=== PATIENT | male | born 1930 | race Caucasian/White ===

== ENCOUNTER 2017-04-14 12:29 | Inpatient (IN) | payer MEDICARE ==
[2017-04-14] MEDS ORDERED: IPRATROPIUM-ALBUTEROL 3 ML NEB INHALATION STA (13:20)
[2017-04-14 13:22] LABS: Glucose,Whole Blood 158 mg/dL (75-99)
--- NOTE | 2017-04-14 13:24 | ED ---
General Adult HPI - General Chief complaint: Altered Mental Status Stated complaint: Alterd Mental State Time Seen by Provider: 04/14/17 13:03 Source: family, EMS, RN notes reviewed Mode of arrival: EMS Limitations: altered mental status - History of Present Illness Initial comments: Patient is a pleasant 86-year-old male presenting to the emergency department with concerns for change in mental status. Daughters are present and provide history. Patient does have some dementia. Patient has been more drowsy since yesterday. has been sleeping all day today and unable to get out of bed. No reported fevers. Patient has had coughing recently and saw an urgent care yesterday and diagnosed with pneumonia. Patient was placed on antibiotics however is only taken 2 pills because he has been so drowsy. No isolated area of weakness. Patient denies any pain. Daughter states patient did complain of headache yesterday - Related Data Home Medications Medication Instructions Recorded Confirmed Apixaban [Eliquis] 2.5 mg PO BID 04/14/17 04/14/17 Aspirin EC [Ecotrin Low Dose] 81 mg PO DAILY 04/14/17 04/14/17 Calcium Carbonate/Vitamin D3 1 tab PO BID 04/14/17 04/14/17 [Calcium 600-Vit D3 200 Tablet] Carvedilol [Coreg] 6.25 mg PO BID 04/14/17 04/14/17 Donepezil [Aricept] 10 mg PO HS 04/14/17 04/14/17 Doxycycline Hyclate 100 mg PO BID 04/14/17 04/14/17 Insulin Glargine,Hum.rec.anlog 40 units SQ HS 04/14/17 04/14/17 [Crystal Amado] Insulin Lispro [humaLOG] See Protocol SQ ACHS 04/14/17 04/14/17 Losartan/Hydrochlorothiazide 1 tab PO DAILY 04/14/17 04/14/17 [Losartan-Hctz 100-12.5 mg Tab] Rosuvastatin Calcium [Crestor] 10 mg PO HS 04/14/17 04/14/17 Vit A/Vit C/Vit E/Zinc/Copper 1 cap PO BID 04/14/17 04/14/17 [ICAPS SOFTGEL] amLODIPine [Norvasc] 2.5 mg PO DAILY 04/14/17 04/14/17 Allergies Allergy/AdvReac Type Severity Reaction Status Date / Time No Known Allergies Allergy Verified 04/14/17 13:52 Review of Systems ROS Statement: Those systems with pertinent positive or pertinent negative responses have been documented in the HPI. ROS Other: All systems not noted in ROS Statement are negative. Constitutional: Denies: fever Eyes: Denies: eye pain ENT: Denies: ear pain Respiratory: Reports: cough (Resolved). Denies: dyspnea Cardiovascular: Denies: chest pain Endocrine: Reports: fatigue Gastrointestinal: Denies: abdominal pain, vomiting Genitourinary: Denies: dysuria Musculoskeletal: Denies: back pain Skin: Denies: rash Neurological: Reports: headache, weakness, confusion Past Medical History Past Medical History: Coronary Artery Disease (CAD), Cancer, Dementia, Diabetes Mellitus, Hyperlipidemia, Pulmonary Embolus (PE) Additional Past Medical History / Comment(s): prostate cancer, insulin dependent diabetes, History of Any Multi-Drug Resistant Organisms: None Reported Past Surgical History: Coronary Bypass/CABG Additional Past Surgical History / Comment(s): 5 vessel bypass 2007, Past Psychological History: No Psychological Hx Reported Smoking Status: Former smoker Past Alcohol Use History: None Reported Past Drug Use History: None Reported General Exam Limitations: altered mental status General appearance: alert, in no apparent distress Head exam: Present: atraumatic Eye exam: Present: normal appearance, PERRL ENT exam: Present: normal oropharynx Neck exam: Present: normal inspection. Absent: tenderness, meningismus Respiratory exam: Present: wheezes (Mild expiratory wheeze) Cardiovascular Exam: Present: regular rate, normal rhythm GI/Abdominal exam: Present: soft. Absent: tenderness Extremities exam: Present: tenderness (Right first MTP with mild swelling and mild erythema) Neurological exam: Present: alert, altered, CN II-XII intact. Absent: motor sensory deficit Expanded Patient oriented to: Present: person. Absent: place, time Speech: Present: fluid speech Cranial nerves: EOM's Intact: Normal Motor strength exam: RUE: 5, LUE: 5, RLE: 5, LLE: 5 Psychiatric exam: Present: normal affect, normal mood Skin exam: Present: erythema (Mild erythema right first MTP) Course Vital Signs 04/14/17 04/14/17 04/14/17 12:34 13:44 14:00 Temperature 97.8 F Pulse Rate 78 73 78 Respiratory 30 H 20 20 Rate Blood Pressure 175/80 176/84 172/80 O2 Sat by Pulse 92 L 96 92 L Oximetry 04/14/17 04/14/17 14:05 14:14 Temperature Pulse Rate 68 72 Respiratory Rate Blood Pressure O2 Sat by Pulse Oximetry EKG Findings - EKG Comments: EKG Findings:: Normal sinus rhythm 79. CT 136. QRS 126. QT 426. QTc 48. Normal axis. Right bundle branch block. Inferior Q waves. No acute ST change. Medical Decision Making - Medical Decision Making Patient reevaluated and resting comfortably in bed. Patient symptoms are felt to be more likely related to pneumonia. Patient does meet sepsis criteria diagnosed at 3:49 PM. Lactic acid and blood cultures have been ordered. IV antibiotics will be started. Case was discussed in detail with Dr. Gold, who will admit for hospital call. Neurology will be consult at for altered mental status. - Lab Data Result diagrams: 04/14/17 13:21 04/14/17 13:21 Lab Results 04/14/17 04/14/17 04/14/17 Range/Units 13:21 13:21 13:21 WBC 16.8 H (3.8-10.6) k/uL RBC 4.09 L (4.30-5.90) m/uL Hgb 10.8 L (13.0-17.5) gm/dL Hct 33.3 L (39.0-53.0) % MCV 81.6 (80.0-100.0) fL MCH 26.4 (25.0-35.0) pg MCHC 32.3 (31.0-37.0) g/dL RDW 17.4 H (11.5-15.5) % Plt Count 295 (150-450) k/uL Neutrophils % 83 % Lymphocytes % 8 % Monocytes % 7 % Eosinophils % 0 % Basophils % 0 % Neutrophils # 13.9 H (1.3-7.7) k/uL Lymphocytes # 1.4 (1.0-4.8) k/uL Monocytes # 1.1 H (0-1.0) k/uL Eosinophils # 0.0 (0-0.7) k/uL Basophils # 0.1 (0-0.2) k/uL Anisocytosis Slight PT (9.0-12.0) sec INR (<1.2) APTT (22.0-30.0) sec Sodium (137-145) mmol/L Potassium (3.5-5.1) mmol/L Chloride (98-107) mmol/L Carbon Dioxide (22-30) mmol/L Anion Gap mmol/L BUN (9-20) mg/dL Creatinine (0.66-1.25) mg/dL Est GFR (MDRD) Af Amer (>60 ml/min/1.73 sqM) Est GFR (MDRD) Non-Af (>60 ml/min/1.73 sqM) Glucose (74-99) mg/dL POC Glucose (mg/dL) (75-99) mg/dL POC Glu Outside Sales Inspector ID Plasma Lactic Acid Markel 1.3 (0.7-2.0) mmol/L Uric Acid (3.5-8.5) mg/dL Calcium (8.4-10.2) mg/dL Total Bilirubin (0.2-1.3) mg/dL AST (17-59) U/L ALT (21-72) U/L Alkaline Phosphatase (38-126) U/L Ammonia <9 (<30) umol/L Total Creatine Kinase 177 H (55-170) U/L CK-MB (CK-2) 2.2 (0.0-2.4) ng/mL CK-MB (CK-2) Rel Index 1.2 Troponin I 0.038 H* (0.000-0.034) ng/mL NT-Pro-B Natriuret Pep pg/mL Total Protein (6.3-8.2) g/dL Albumin (3.5-5.0) g/dL 04/14/17 04/14/17 04/14/17 Range/Units 13:21 13:21 13:21 WBC (3.8-10.6) k/uL RBC (4.30-5.90) m/uL Hgb (13.0-17.5) gm/dL Hct (39.0-53.0) % MCV (80.0-100.0) fL MCH (25.0-35.0) pg MCHC (31.0-37.0) g/dL RDW (11.5-15.5) % Plt Count (150-450) k/uL Neutrophils % % Lymphocytes % % Monocytes % % Eosinophils % % Basophils % % Neutrophils # (1.3-7.7) k/uL Lymphocytes # (1.0-4.8) k/uL Monocytes # (0-1.0) k/uL Eosinophils # (0-0.7) k/uL Basophils # (0-0.2) k/uL Anisocytosis PT 11.4 (9.0-12.0) sec INR 1.1 (<1.2) APTT 23.7 (22.0-30.0) sec Sodium 141 (137-145) mmol/L Potassium 4.1 (3.5-5.1) mmol/L Chloride 101 (98-107) mmol/L Carbon Dioxide 28 (22-30) mmol/L Anion Gap 12 mmol/L BUN 34 H (9-20) mg/dL Creatinine 1.64 H (0.66-1.25) mg/dL Est GFR (MDRD) Af Amer 48 (>60 ml/min/1.73 sqM) Est GFR (MDRD) Non-Af 40 (>60 ml/min/1.73 sqM) Glucose 148 H (74-99) mg/dL POC Glucose (mg/dL) 158 H (75-99) mg/dL POC Glu Outside Sales Inspector ID McDaid, Sarah Plasma Lactic Acid Markel (0.7-2.0) mmol/L Uric Acid (3.5-8.5) mg/dL Calcium 9.5 (8.4-10.2) mg/dL Total Bilirubin 0.6 (0.2-1.3) mg/dL AST 45 (17-59) U/L ALT 71 (21-72) U/L Alkaline Phosphatase 97 (38-126) U/L Ammonia (<30) umol/L Total Creatine Kinase (55-170) U/L CK-MB (CK-2) (0.0-2.4) ng/mL CK-MB (CK-2) Rel Index Troponin I (0.000-0.034) ng/mL NT-Pro-B Natriuret Pep pg/mL Total Protein 6.8 (6.3-8.2) g/dL Albumin 3.5 (3.5-5.0) g/dL 04/14/17 04/14/17 Range/Units 13:21 13:21 WBC (3.8-10.6) k/uL RBC (4.30-5.90) m/uL Hgb (13.0-17.5) gm/dL Hct (39.0-53.0) % MCV (80.0-100.0) fL MCH (25.0-35.0) pg MCHC (31.0-37.0) g/dL RDW (11.5-15.5) % Plt Count (150-450) k/uL Neutrophils % % Lymphocytes % % Monocytes % % Eosinophils % % Basophils % % Neutrophils # (1.3-7.7) k/uL Lymphocytes # (1.0-4.8) k/uL Monocytes # (0-1.0) k/uL Eosinophils # (0-0.7) k/uL Basophils # (0-0.2) k/uL Anisocytosis PT (9.0-12.0) sec INR (<1.2) APTT (22.0-30.0) sec Sodium (137-145) mmol/L Potassium (3.5-5.1) mmol/L Chloride (98-107) mmol/L Carbon Dioxide (22-30) mmol/L Anion Gap mmol/L BUN (9-20) mg/dL Creatinine (0.66-1.25) mg/dL Est GFR (MDRD) Af Amer (>60 ml/min/1.73 sqM) Est GFR (MDRD) Non-Af (>60 ml/min/1.73 sqM) Glucose (74-99) mg/dL POC Glucose (mg/dL) (75-99) mg/dL POC Glu Outside Sales Inspector ID Plasma Lactic Acid Markel (0.7-2.0) mmol/L Uric Acid 7.2 (3.5-8.5) mg/dL Calcium (8.4-10.2) mg/dL Total Bilirubin (0.2-1.3) mg/dL AST (17-59) U/L ALT (21-72) U/L Alkaline Phosphatase (38-126) U/L Ammonia (<30) umol/L Total Creatine Kinase (55-170) U/L CK-MB (CK-2) (0.0-2.4) ng/mL CK-MB (CK-2) Rel Index Troponin I (0.000-0.034) ng/mL NT-Pro-B Natriuret Pep 1780 pg/mL Total Protein (6.3-8.2) g/dL Albumin (3.5-5.0) g/dL - Radiology Data Radiology results: report reviewed (Computed tomography scan of the brain shows no acute abdomen Chase. Severe atrophy and chronic small vessel ischemic change. Old right parietal occipital infarct.), image reviewed (X-ray right foot shows first MTP joint arthropathy two-view chest x-ray shows basilar infiltrate.) Critical Care Time Critical Care Time: Yes Total Critical Care Time: 31 Disposition Clinical Impression: Altered mental status, Pneumonia, Sepsis Disposition: ADMITTED IP TO THIS HOSP Condition: Serious Referrals: Dharmesh Christy DO [Primary Care Provider] - 1-2 days Decision Time: 15:54
[2017-04-14 13:38] LABS: Anisocytosis Slight; Basophils # (A) 0.1 k/uL (0-0.2); Basophils % (A) 0 %; CH 26.5; CHCM 32.6; Eosinophils % (A) 0 %; HCT 33.3 % (39.0-53.0); HDW 2.97; HGB 10.8 gm/dL (13.0-17.5); Luc % (Auto) 2; Lymphocytes # (A) 1.4 k/uL (1.0-4.8); Lymphocytes % (A) 8 %; MCH 26.4 pg (25.0-35.0); MCHC 32.3 g/dL (31.0-37.0); MCV 81.6 fL (80.0-100.0); Mean Platelet Volume 8.5; Monocytes # (A) 1.1 k/uL (0-1.0); Monocytes % (A) 7 %; Neutrophils # (A) 13.9 k/uL (1.3-7.7); Neutrophils % (A) 83 %; RBC 4.09 m/uL (4.30-5.90); RDW 17.4 % (11.5-15.5); WBC 16.8 k/uL (3.8-10.6); WBC (Perox) 15.61
[2017-04-14 13:47] LABS: Calcium 9.5 mg/dL (8.4-10.2); Potassium 4.1 mmol/L (3.5-5.1); Total Bilirubin 0.6 mg/dL (0.2-1.3); Total Protein 6.8 g/dL (6.3-8.2)
[2017-04-14 13:51] LABS: INR 1.1 (<1.2); Partial Thromboplastin Time 23.7 sec (22.0-30.0); Prothrombin Time 11.4 sec (9.0-12.0)
[2017-04-14 13:56] LABS: Ammonia <9 umol/L (<30)
--- NOTE | 2017-04-14 14:05 | XR ---
EXAMINATION TYPE: XR chest 2V DATE OF EXAM: 04/14/2017 COMPARISON: NONE TECHNIQUE: PA and lateral views submitted. HISTORY: Altered mental status FINDINGS: Heart is enlarged and is atherosclerotic change aorta. Postoperative change involving the mediastinum . Basilar consolidation and small effusions. IMPRESSION: 1. Basilar infiltrate and small effusion could not exclude mild central venous congestion.
--- NOTE | 2017-04-14 14:05 | CT ---
EXAMINATION TYPE: CT brain wo con DATE OF EXAM: 04/14/2017 HISTORY: Altered mental status. Lethargy with headache and neck pain. History of Alzheimer's. CT DLP: 1072.3 mGycm. Automated Exposure Control for Dose Reduction was Utilized. TECHNIQUE: CT scan of the head is performed without contrast. COMPARISON: None. FINDINGS: There is no acute intracranial hemorrhage or midline shift identified. There is diffuse v entricular and sulcal prominence consistent with diffuse age-related cerebral atrophy. There is low- attenuation in the periventricular white matter consistent with chronic small vessel ischemic change. There is old infarct high right parietal occipital region there are axial image 37. There is partial opacification and mucosal thickening involving ethmoid sinuses bilaterally. Cortical lorenzo in both globes are identified. IMPRESSION: No acute intracranial hemorrhage or midline shift. There is fairly severe diffuse age-r elated cerebral atrophy and chronic small vessel ischemic change as well as old high right parietal o ccipital lobe posterior watershed infarct all identified.
--- NOTE | 2017-04-14 14:06 | XR ---
EXAMINATION TYPE: XR foot complete RT DATE OF EXAM: 04/14/2017 COMPARISON: NONE HISTORY: Pain TECHNIQUE: Three views are submitted. FINDINGS: The osseous structures are intact and is narrowing and hypertrophic change of the first MTP joint. T here is no acute fracture or dislocation. Surgical clips are seen adjacent to the medial margin of t he ankle. Calcaneal spurs are noted. IMPRESSION: 1. No acute fracture or dislocation. If symptoms persist, follow-up exam in 7 to 10 days could be ob tained. 2. Severe first MTP joint arthropathy.
[2017-04-14 14:08] LABS: Creatine Kinase MB 2.2 ng/mL (0.0-2.4)
[2017-04-14 14:17] LABS: Troponin I 0.038 ng/mL (0.000-0.034)
[2017-04-14] MEDS ORDERED: PNEUMONIA PROTOCOL UTILIZED 1 EACH MISC PO PRN (15:54)
[2017-04-14] MEDS ORDERED: IPRATROPIUM-ALBUTEROL 3 ML NEB INHALATION PRN (15:54)
[2017-04-14] MEDS ORDERED: AZITHROMYCIN 500 MG in SODIUM CHLORIDE 0.9% 250 ML IVPB STA (15:54)
[2017-04-14] MEDS ORDERED: amLODIPine 5 MG TAB PO STA (16:07)
[2017-04-14] MEDS: SODIUM CHLORIDE 0.9% 1,000 ML IV SCH (16:39)
[2017-04-14] MEDS: IPRATROPIUM-ALBUTEROL 3 ML NEB INHALATION SCH ×2 (16:56→20:05)
[2017-04-14 17:33] LABS: Glucose,Whole Blood 149 mg/dL (75-99)
[2017-04-14] MEDS: ASPIRIN 81 MG PO SCH (18:26)
[2017-04-14 20:33] LABS: Glucose,Whole Blood 205 mg/dL (75-99)
[2017-04-14] MEDS: APIXABAN 5 MG TAB PO SCH (20:38)
[2017-04-14] MEDS: DONEPEZIL 10 MG TAB PO SCH (20:38)
[2017-04-14] MEDS: VIT A,C & E-LUTEIN-MINERALS 1 EACH TAB PO SCH (20:38)
[2017-04-14] MEDS: CALCIUM CARB-VIT D 500MG-200UN 1 EACH TAB PO SCH (20:38)
[2017-04-14] MEDS: ATORVASTATIN 20 MG TAB PO SCH (20:38)
[2017-04-14] MEDS: INSULIN GLARGINE 100 UNIT/ML 10 ML VIAL SQ SCH (20:38)
[2017-04-14] MEDS: INSULIN LISPRO (humaLOG) 300 UNIT/3 ML VIAL SQ SCH (20:39)
[2017-04-14] MEDS: NYSTATIN 100,000UNIT/GM CREAM 30 GM TUBE TOPICAL SCH (20:40)
[2017-04-14 22:05] LABS: Appearance,Urine Clear (Clear); Bilirubin,Urine Negative (Negative); Glucose,Urine (UA) Negative (Negative); Ketones,Urine Negative (Negative); Leukocyte Esterase,Urine Negative (Negative); Mucus,Urine Rare /hpf; Nitrite,Urine Negative (Negative); PH, Urine 5.5 (5.0-8.0); Particle Count 2510; Protein,Urine 1+ (Negative); RBC,Urine 10 /hpf (0-5); Specific Gravity,Urine 1.018 (1.001-1.035); UA Billing (MACRO vs. MICRO) MICRO; Urobilinogen,Urine <2.0 mg/dL (<2.0); WBC,Urine <1 /hpf (0-5)
[2017-04-14 22:26] LABS: Hemoglobin A1C 7.6 % (4.2-6.1)
[2017-04-15 02:02] LABS: Glucose,Whole Blood 106 mg/dL (75-99)
[2017-04-15] MEDS: SODIUM CHLORIDE 0.9% 1,000 ML IV SCH ×2 (04:30→11:47)
[2017-04-15 05:49] LABS: Glucose,Whole Blood 82 mg/dL (75-99)
[2017-04-15] MEDS: INSULIN LISPRO (humaLOG) 300 UNIT/3 ML VIAL SQ SCH ×4 (05:59→21:54)
[2017-04-15] MEDS: CARVEDILOL 6.25 MG TAB PO SCH ×2 (06:12→16:36)
[2017-04-15] MEDS: IPRATROPIUM-ALBUTEROL 3 ML NEB INHALATION SCH ×4 (08:14→20:47)
[2017-04-15] MEDS ORDERED: LOSARTAN 50 MG TAB PO SCH (09:00)
[2017-04-15] MEDS ORDERED: HYDROCHLOROTHIAZIDE 12.5 MG CAP PO SCH (09:00)
--- NOTE | 2017-04-15 09:10 | XR ---
EXAMINATION TYPE: XR chest 2V DATE OF EXAM: 04/15/2017 COMPARISON: X-ray from yesterday. HISTORY: Pneumonia progress study. TECHNIQUE: Frontal and lateral views of the chest are obtained. FINDINGS: Post-CABG changes with mediastinal clips and sternal wires is redemonstrated. Cardiac silh ouette size is upper limits of normal currently and improving. There is improving central vascular co ngestion and bibasilar opacities on current study. No new focal airspace opacity or pneumothorax is s een bilaterally. There is suspected stable small left pleural effusion. Degenerative change right gle nohumeral joint is redemonstrated. IMPRESSION: Stable persistent small left pleural effusion. Improving central vascular congestion and cardiomegaly with improving bibasilar infiltrate and/or atelectasis.
--- NOTE | 2017-04-15 09:23 | HP ---
HISTORY AND PHYSICAL CHIEF COMPLAINT: 86-year-old, white male, admitted through the emergency room with a change in mental status. HISTORY OF PRESENT ILLNESS: 86-year-old, white male, presented with altered mental status. More drowsy, sleeping all day. Coughing. He was seen in the Urgent Care, diagnosed with pneumonia, became obtunded last 24 to 48 hours at which time, was admitted to the hospital. 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 MEDICATIONS: He is on Eliquis at home for atrial fibrillation. DVTs. Aspirin 81 daily, calcium carbonate daily, Coreg 6.25 b.i.d., Aricept 10 daily, doxycycline 100 b.i.d. for recent pneumonia, insulin 40 units q.h.s., Humalog a.c. and q.h.s., Hyzaar 100/12.5 1 daily. Crestor 10 mg daily. Norvasc 2.5 daily. ALLERGIES: No known drug allergies. REVIEW OF SYSTEMS: Very limited response of the patient as he has recently sleeping. Discussed with the family multiple cares. PHYSICAL EXAMINATION: Temp 97.8, pulse 73 to 78, respiratory rate 20s to 30s. Blood pressure 170s over 80s, O2 92-96% on room air. CARDIOVASCULAR: S1, S2. Lungs wheeze x4 and Endocrine: BMI is over 40. Psych: Fair mood and affect. Speech he is limited speech but cannot recently saying. He falls back asleep. GI: Distended without mass or obesity. CARDIOVASCULAR: Regular rate and rhythm. HEENT: Normocephalic, atraumatic. Pupils equal, round, reactive to light and accommodation. EKG sinus rhythm. White count 16.8, hemoglobin was 10.8, BUN is 34, creatinine 1.6. ASSESSMENT: 1. Pneumonia. 2. Sepsis secondary to pneumonia. IV antibiotics have been given as well as Rocephin and Zithromax. Neurology consult for possible CVA is ordered. He is also complaining of neck pain. Waking up. We will order a CT of the cervical spine. EKG shows inferior ST changes. Continue in the next current 24 to 48 hours. MMODL / IJN: [id number] /
[2017-04-15] MEDS: ASPIRIN 81 MG PO SCH (09:35)
[2017-04-15] MEDS: amLODIPine 2.5 MG TAB PO SCH (09:35)
[2017-04-15] MEDS: APIXABAN 5 MG TAB PO SCH (09:35)
[2017-04-15] MEDS: NYSTATIN 100,000UNIT/GM CREAM 30 GM TUBE TOPICAL SCH ×3 (09:36→22:22)
[2017-04-15] MEDS: VIT A,C & E-LUTEIN-MINERALS 1 EACH TAB PO SCH ×2 (09:36→21:54)
[2017-04-15] MEDS: CALCIUM CARB-VIT D 500MG-200UN 1 EACH TAB PO SCH ×2 (09:36→21:54)
[2017-04-15 11:46] LABS: Glucose,Whole Blood 111 mg/dL (75-99)
[2017-04-15] MEDS: AZITHROMYCIN 500 MG TAB PO SCH (15:50)
[2017-04-15 18:00] LABS: Glucose,Whole Blood 115 mg/dL (75-99)
--- NOTE | 2017-04-15 18:36 | P.PN ---
Subjective This is a 86-year-old gentleman that is seen in cross coverage for Dr. Dr. Norm Gold. Patient was evaluated by Dr. Gold on 04/14/2017 patient was felt to have change in mental status due to a pneumonic process. Most of the history is obtained from chart review. Patient apparently has a history of CAD remote history of pulmonary embolism is currently on anticoagulation. Patient has a history of dementia. Was noted to have an elevated white count and bibasilar airspace disease was started on antibiotic therapy for CAD Today patient is arousable however confused this appears to be close to his baseline moves all 4 extremities Patient did have an elevated troponin level on admission and an elevated BNP chest x-ray did show pulmonary vessel congestion unknown if patient has congestive heart failure Patient's medications do not reflect there is systolic failure as patient is on calcium channel melissa Objective - Vital Signs Vital signs: Vital Signs Temp 97.6 F 04/15/17 08:45 Pulse 74 04/15/17 17:48 Resp 16 04/15/17 16:04 BP 148/57 04/15/17 16:03 Pulse Ox 93 L 04/15/17 17:33 Intake & Output 04/14/17 04/15/17 04/15/17 18:59 06:59 18:59 Intake Total 100 700 Output Total 186 Balance -86 700 Weight 99.79 kg 100 kg Intake: Intake, IV Titration 700 Amount Sodium Chloride 0.9% 1, 700 000 ml @ 100 mls/hr IV . Q10H BALWINDER Rx#:[id number] Oral 100 Output: Post Void Residual 186 Other: Voiding Method Urinal Urinal Urinal Diaper Diaper Diaper # Voids 3 0 # Bowel Movements 1 - Exam Alert to self Neck is supple no JVD Breath sounds are equal no wheezing crackles or rhonchi appreciated does have a cough evaluation wheezing noted predominantly from the upper airways air movement is noted in all lung buenrostro Heart S1-S2 heard appears to be irregular no murmurs appreciated Abdomen is soft nontender no organomegaly Lower extremities no edema noted Neuro moves all 4 extremities cranial nerves to till 12 grossly intact follows simple commands however is unaware of his location. - Labs CBC & Chem 7: 04/14/17 13:21 04/14/17 13:21 Labs: Abnormal Lab Results - Last 24 Hours (Table) 04/14/17 04/14/17 04/14/17 Range/Units 13:21 20:32 21:30 POC Glucose (mg/dL) 205 H (75-99) mg/dL Hemoglobin A1c 7.6 H (4.2-6.1) % Urine Protein 1+ H (Negative) Urine Blood Trace H (Negative) Urine RBC 10 H (0-5) /hpf Urine Mucus Rare H (None) /hpf 04/15/17 04/15/17 04/15/17 Range/Units 02:00 11:45 17:58 POC Glucose (mg/dL) 106 H 111 H 115 H (75-99) mg/dL Hemoglobin A1c (4.2-6.1) % Urine Protein (Negative) Urine Blood (Negative) Urine RBC (0-5) /hpf Urine Mucus (None) /hpf Microbiology - Last 24 Hours (Table) 04/14/17 13:21 Blood Culture - Preliminary Blood No Growth after 24 hours Assessment and Plan Plan: #1 sepsis secondary to a community-acquired pneumonia #2 hypertension, accelerated with no urgency features #3 underlying dementia #4 CAD #5 history of pulmonary embolism #6 dyslipidemia #7 previous history of CVA #8 indeterminate troponin leak #9 acute metabolic encephalopathy likely secondary to #1 and mild hypoxia intermittently Plan We'll obtain echocardiogram to evaluate LV function patient did have a troponin leak with patient's poor history unsure if patient has chest pain and this was the inciting event Blood pressures will be monitored will need better control Telemetry monitoring to continue
[2017-04-15] MEDS ORDERED: FUROSEMIDE 10 MG/ML 4 ML VIAL IV STA (19:56)
--- NOTE | 2017-04-15 20:39 | XR ---
EXAMINATION TYPE: XR chest 1V portable DATE OF EXAM: 04/15/2017 CLINICAL HISTORY: Difficulty breathing and pneumonia progress study. TECHNIQUE: Single AP portable upright view of the chest is obtained. COMPARISON: Chest x-ray from earlier today. FINDINGS: Post-CABG changes with mediastinal clips and sternal wires is redemonstrated. Cardiac silh ouette size is stable and upper limits of normal with atherosclerotic thoracic aorta. There is persis tent [id number] central vascular congestion. No suspicious new focal airspace opacity or pneumo thorax is seen bilaterally. There is suspected stable small left pleural effusion. Degenerative cramer e right glenohumeral joint is redemonstrated. Surgical clips right neck level are noted. IMPRESSION: Overall stable findings, central vascular congestion and small left pleural effusion wi thout distinct suspicious focal infiltrate clearly seen
[2017-04-15 21:13] LABS: Glucose,Whole Blood 221 mg/dL (75-99)
[2017-04-15] MEDS: AMPICILLIN-SULBACTAM 1.5 GM in SODIUM CHLORIDE 0.9% 50 ML IVPB SCH (21:54)
[2017-04-15] MEDS: ATORVASTATIN 20 MG TAB PO SCH (21:54)
[2017-04-15] MEDS: DONEPEZIL 10 MG TAB PO SCH (21:54)
[2017-04-15] MEDS: INSULIN GLARGINE 100 UNIT/ML 10 ML VIAL SQ SCH (21:59)
[2017-04-15] MEDS: APIXABAN 2.5 MG TABLET PO SCH (22:22)
--- NOTE | 2017-04-16 00:06 | P.CNNES ---
History of Present Illness Consult date: 04/14/17 Reason for Consult: altered mental status Chief complaint: Confusion History of Present Illness: The patient is an 86-year-old male being consulted by neurology for altered mental status. Patient was evaluated by Dr. Park on 04/14/2017 and felt to have changes in mental status due to pneumonia process. Patient does have a history of CAD, remote pulmonary embolism and a history of dementia. Patients daughter stated he has Alzheimers. Per family, the patient has been declining significantly in the last several months in memory and global functioning. [place] prior to December 2016 but his health was declining. He was moved to the [facility] in December 2016 but failed to establish with any primary care or, unable to follow specialty providers. Per daughter, the patient has been without his medications for the last severla months. This is the first contact of any medical care since relocating. On contact, the patient was supine in bed, visibly confused, unable to follow direction. Review of Systems Systems not noted in HPI are negative Past Medical History Past Medical History: Coronary Artery Disease (CAD), Cancer, CVA/TIA, Dementia, Diabetes Mellitus, Eye Disorder, Hyperlipidemia, Hypertension, Memory Impairment , Pneumonia, Prostate Disorder, Pulmonary Embolus (PE) Additional Past Medical History / Comment(s): prostate cancer,skin cancer, insulin dependent diabetes,katia macular degeneration, past detatched retina katia eyes had sx, past cataracs(sx), shingles 40 years ago, wears a brief. "yeast infection abd fold/groin area-has a prescription cream for it" History of Any Multi-Drug Resistant Organisms: None Reported Past Surgical History: Coronary Bypass/CABG, Hernia Repair, Prostate Surgery Additional Past Surgical History / Comment(s): 5 vessel bypass 2007, katia carotid sx, prostatectomy, katia eye retinal sx, bleheroplasty x2, catatacts Past Anesthesia/Blood Transfusion Reactions: Previous Problems w/ Anesthesia Additional Past Anesthesia/Blood Transfusion Reaction / Comment(s): increased confusion/hallucinating after sx Smoking Status: Former smoker - Past Family History Mother Family Medical History: CVA/TIA, Dementia Father Family Medical History: Cancer Additional Family Medical History / Comment(s): from stomach cancer at 48 Medications and Allergies Home Medications Medication Instructions Recorded Confirmed Type Apixaban [Eliquis] 2.5 mg PO BID 04/14/17 04/14/17 History Aspirin EC [Ecotrin Low Dose] 81 mg PO DAILY 04/14/17 04/14/17 History Calcium Carbonate/Vitamin D3 1 tab PO BID 04/14/17 04/14/17 History [Calcium 600-Vit D3 200 Tablet] Carvedilol [Coreg] 6.25 mg PO BID 04/14/17 04/14/17 History Donepezil [Aricept] 10 mg PO HS 04/14/17 04/14/17 History Doxycycline Hyclate 100 mg PO BID 04/14/17 04/14/17 History Insulin Glargine,Hum.rec.anlog 40 units SQ HS 04/14/17 04/14/17 History [Toudaniel Solostar] Insulin Lispro [humaLOG] See Protocol SQ ACHS 04/14/17 04/14/17 History Losartan/Hydrochlorothiazide 1 tab PO DAILY 04/14/17 04/14/17 History [Losartan-Hctz 100-12.5 mg Tab] Nystatin 100,000Unit/gm Cream 1 applic TOPICAL TID 04/14/17 04/14/17 History [Mycostatin Cream] Rosuvastatin Calcium [Crestor] 10 mg PO HS 04/14/17 04/14/17 History Vit A/Vit C/Vit E/Zinc/Copper 1 cap PO BID 04/14/17 04/14/17 History [ICAPS SOFTGEL] amLODIPine [Norvasc] 2.5 mg PO DAILY 04/14/17 04/14/17 History Allergies Allergy/AdvReac Type Severity Reaction Status Date / Time No Known Allergies Allergy Verified 04/14/17 13:52 Physical Examination - Vital Signs Vital Signs: Vital Signs Temp Pulse Pulse Pulse Resp BP Pulse Ox 04/15/17 21:01 80 04/15/17 20:47 78 04/15/17 20:00 78 30 H 150/72 98 04/15/17 17:48 74 04/15/17 17:33 70 93 L 04/15/17 16:04 16 04/15/17 16:03 72 16 148/57 92 L 04/15/17 11:55 76 04/15/17 11:39 76 04/15/17 11:25 65 18 142/69 94 L 04/15/17 08:45 97.6 F 65 20 147/68 94 L 04/15/17 07:35 78 40 H 153/107 79 L 04/15/17 04:00 98.2 F 73 20 149/71 92 L 04/15/17 00:00 97.1 F L 77 20 157/77 95 Intake and Output 04/15/17 04/15/17 04/16/17 14:59 22:59 06:59 Other: Voiding Method Urinal Urinal Diaper Diaper # Voids 2 0 # Bowel Movements 1 Constitutional: AOx1, intermittently cooperative HEENT: NC/AT, no facial asymmetry is seen. Throat: Supple, no masses Respiratory: No increased work of breathing Cardiac: Regular rate and Rhythm GI: non tender, non distended Musculoskeletal: Steamer Tender strengths are equal bilaterally 5/5, Lower extremity strengths are equal bilaterally at 5/5. Neurological: CN II-XII in tact, patient was AOx1, moves all extremities, intermittently follows simple verbal commands Integementary: no rash, no erythema Results - Laboratory Findings CBC and BMP: 04/14/17 13:21 04/14/17 13:21 Abnormal Lab Findings: Abnormal Labs 04/14/17 04/14/17 04/14/17 13:21 13:21 13:21 WBC 16.8 H RBC 4.09 L Hgb 10.8 L Hct 33.3 L RDW 17.4 H Neutrophils # 13.9 H Monocytes # 1.1 H D-Dimer BUN 34 H Creatinine 1.64 H Glucose 148 H POC Glucose (mg/dL) Hemoglobin A1c Total Creatine Kinase 177 H Troponin I 0.038 H* Urine Protein Urine Blood Urine RBC Urine Mucus 04/14/17 04/14/17 04/14/17 13:21 13:21 17:20 WBC RBC Hgb Hct RDW Neutrophils # Monocytes # D-Dimer BUN Creatinine Glucose POC Glucose (mg/dL) 158 H 149 H Hemoglobin A1c 7.6 H Total Creatine Kinase Troponin I Urine Protein Urine Blood Urine RBC Urine Mucus 04/14/17 04/14/17 04/15/17 20:32 21:30 02:00 WBC RBC Hgb Hct RDW Neutrophils # Monocytes # D-Dimer BUN Creatinine Glucose POC Glucose (mg/dL) 205 H 106 H Hemoglobin A1c Total Creatine Kinase Troponin I Urine Protein 1+ H Urine Blood Trace H Urine RBC 10 H Urine Mucus Rare H 04/15/17 04/15/17 04/15/17 11:45 17:58 20:05 WBC RBC Hgb Hct RDW Neutrophils # Monocytes # D-Dimer 1.56 H BUN Creatinine Glucose POC Glucose (mg/dL) 111 H 115 H Hemoglobin A1c Total Creatine Kinase Troponin I Urine Protein Urine Blood Urine RBC Urine Mucus 04/15/17 21:01 WBC RBC Hgb Hct RDW Neutrophils # Monocytes # D-Dimer BUN Creatinine Glucose POC Glucose (mg/dL) 221 H Hemoglobin A1c Total Creatine Kinase Troponin I Urine Protein Urine Blood Urine RBC Urine Mucus - Diagnostic Findings Additional findings: CT brain without contrast notes: No acute intracranial hemorrhage or midline shift. Fairly severe diffuse age-related cerebral atrophy and chronic small vessel ischemic changes as well as old high right parietal occipital lobe posterior watershed infarct all identified. Assessment and Plan (1) Alzheimer's dementia Status: Acute (2) Altered mental status Status: Acute (3) Sepsis Status: Acute (4) Metabolic encephalopathy Status: Acute Plan: Metabolic Encepahlopathy secondary to CAP: Patient is not on required medication, except for intermittent use of remaining from prior to relocating in December 2016. Patient is currently receiving IV anitibiotics for pneumonia per primary team. Patient's pneumonia likely exacerbated his alzheimers disease as he has not had consistent Alzheimers medication in the last 4 months. However, there is some inconsistency since imaging notes small vessel ischemic disease but family insists he has ALzheimer' s. Status: Patient is cleared from a neurological standpoint at this time, until his underlying infectious processes is cleared. Patient will need to follow up within 2 weeks post discharge for establishment of long-term medication regimen and determination of alzheimers vs vascular dementia. We will request prior provider records to determine definitive diagnosis and prior medication regimen. I discussed the patient's pertinent medical information with Dr. Gonzalez. He agrees with the plan of care as implemented.
[2017-04-16 06:12] LABS: Glucose,Whole Blood 85 mg/dL (75-99)
[2017-04-16 06:35] LABS: Anisocytosis Slight; Basophils % (A) 0 %; CH 25.2; CHCM 30.5; Eosinophils # (A) 0.1 k/uL (0-0.7); Eosinophils % (A) 1 %; HCT 33.8 % (39.0-53.0); HDW 2.87; HGB 10.9 gm/dL (13.0-17.5); Hypochromasia Moderate; Luc # (Auto) 0.36; Luc % (Auto) 3; Lymphocytes # (A) 1.6 k/uL (1.0-4.8); Lymphocytes % (A) 12 %; MCH 26.8 pg (25.0-35.0); MCHC 32.3 g/dL (31.0-37.0); MCV 82.8 fL (80.0-100.0); Mean Platelet Volume 7.5; Monocytes # (A) 0.7 k/uL (0-1.0); Monocytes % (A) 5 %; Neutrophils # (A) 10.8 k/uL (1.3-7.7); Neutrophils % (A) 80 %; RBC 4.09 m/uL (4.30-5.90); RDW 16.4 % (11.5-15.5); WBC 13.6 k/uL (3.8-10.6)
[2017-04-16] MEDS: INSULIN LISPRO (humaLOG) 300 UNIT/3 ML VIAL SQ SCH ×4 (06:37→21:02)
[2017-04-16 06:41] LABS: Potassium 3.5 mmol/L (3.5-5.1); Total Bilirubin 0.4 mg/dL (0.2-1.3); Total Protein 6.4 g/dL (6.3-8.2)
[2017-04-16] MEDS: IPRATROPIUM-ALBUTEROL 3 ML NEB INHALATION SCH ×4 (08:36→20:27)
[2017-04-16] MEDS: AMPICILLIN-SULBACTAM 1.5 GM in SODIUM CHLORIDE 0.9% 50 ML IVPB SCH ×2 (09:15→21:04)
[2017-04-16] MEDS ORDERED: FUROSEMIDE 40 MG TAB PO SCH (11:00)
[2017-04-16 12:14] LABS: Glucose,Whole Blood 77 mg/dL (75-99)
[2017-04-16] MEDS: APIXABAN 2.5 MG TABLET PO SCH ×2 (12:18→21:02)
[2017-04-16] MEDS: NYSTATIN 100,000UNIT/GM CREAM 30 GM TUBE TOPICAL SCH ×3 (12:18→21:03)
[2017-04-16] MEDS: ASPIRIN 81 MG PO SCH (12:18)
[2017-04-16] MEDS: CARVEDILOL 6.25 MG TAB PO SCH ×2 (12:18→16:41)
[2017-04-16] MEDS: CALCIUM CARB-VIT D 500MG-200UN 1 EACH TAB PO SCH ×2 (12:18→21:02)
[2017-04-16] MEDS: amLODIPine 2.5 MG TAB PO SCH (12:18)
[2017-04-16] MEDS: VIT A,C & E-LUTEIN-MINERALS 1 EACH TAB PO SCH ×2 (12:18→21:02)
[2017-04-16] MEDS ORDERED: DEXTROSE 4 GM CHEWABLE PO PRN (12:21)
[2017-04-16] MEDS: POTASSIUM CHLORIDE 20 MEQ, LIDOCAINE 2% INJ 20 MG in SODIUM CHLORIDE 0.9% 100 ML IVPB SCH ×2 (12:25→14:38)
[2017-04-16] MEDS: AZITHROMYCIN 500 MG TAB PO SCH (14:38)
--- NOTE | 2017-04-16 16:27 | P.PN ---
Subjective This is a 86-year-old gentleman that is seen in cross coverage for Dr. Dr. Norm Gold. Patient was evaluated by Dr. Gold on 04/14/2017 patient was felt to have change in mental status due to a pneumonic process. Most of the history is obtained from chart review. Patient apparently has a history of CAD remote history of pulmonary embolism is currently on anticoagulation. Patient has a history of dementia. Was noted to have an elevated white count and bibasilar airspace disease was started on antibiotic therapy for CAD Today patient is arousable however confused this appears to be close to his baseline moves all 4 extremities Patient did have an elevated troponin level on admission and an elevated BNP chest x-ray did show pulmonary vessel congestion unknown if patient has congestive heart failure Patient's medications do not reflect there is systolic failure as patient is on calcium channel melissa 04/16/2017 Patient was doing well yesterday however overnight the patient did receive a phone call stating the sudden onset of difficulty breathing was noted thereafter patient was slightly lethargic. Patient required significant amount of supplemental oxygen This was after the patient's meal Patient apparently does have dementia at baseline. Patient's family member who was at bedside did give a more extensive history. Patient is arousable this morning denies having any breathing difficulty nausea vomiting abdominal pain or diarrhea is on the 4 L of supplemental oxygen at this time. Objective - Vital Signs Vital signs: Vital Signs Temp 99.4 F 04/16/17 08:49 Pulse 90 04/16/17 16:21 Resp 16 04/16/17 11:35 BP 149/75 04/16/17 11:35 Pulse Ox 95 04/16/17 11:35 Intake & Output 04/15/17 04/16/17 04/16/17 18:59 06:59 18:59 Intake Total 200 Output Total 2200 Balance -2200 200 Weight 101 kg Intake: IV 200 Potassium Chloride 20 meq 200 Lidocaine 2% Inj 20 mg In Sodium Chloride 0.9% 100 ml @ 55.5 mls/hr IVPB Q2HR BALWINDER Rx#:[id number] Output: Urine 2200 Other: Voiding Method Urinal Indwelling Catheter Indwelling Catheter Diaper # Voids 0 # Bowel Movements 1 - Exam Gen. appearance alert to self however is answering questions appropriately lungs good air movement is noted no significant wheezing rhonchi a trace crackles at the by bases similar areas Heart S1-S2 heard regular in rhythm no murmurs or patient Abdomen is soft nontender organomegaly Lower ext. no edema noted Neuro is able to move all fortunately is does follow commands however is not completely appropriate. - Labs CBC & Chem 7: 04/16/17 05:40 04/16/17 05:40 Labs: Abnormal Lab Results - Last 24 Hours (Table) 04/15/17 04/15/17 04/15/17 Range/Units 17:58 20:05 21:01 WBC (3.8-10.6) k/uL RBC (4.30-5.90) m/uL Hgb (13.0-17.5) gm/dL Hct (39.0-53.0) % RDW (11.5-15.5) % Neutrophils # (1.3-7.7) k/uL D-Dimer 1.56 H (<0.60) mg/L FEU BUN (9-20) mg/dL Creatinine (0.66-1.25) mg/dL Glucose (74-99) mg/dL POC Glucose (mg/dL) 115 H 221 H (75-99) mg/dL AST (17-59) U/L ALT (21-72) U/L Albumin (3.5-5.0) g/dL 04/16/17 04/16/17 Range/Units 05:40 05:40 WBC 13.6 H (3.8-10.6) k/uL RBC 4.09 L (4.30-5.90) m/uL Hgb 10.9 L (13.0-17.5) gm/dL Hct 33.8 L (39.0-53.0) % RDW 16.4 H (11.5-15.5) % Neutrophils # 10.8 H (1.3-7.7) k/uL D-Dimer (<0.60) mg/L FEU BUN 32 H (9-20) mg/dL Creatinine 1.69 H (0.66-1.25) mg/dL Glucose 68 L (74-99) mg/dL POC Glucose (mg/dL) (75-99) mg/dL AST 79 H (17-59) U/L ALT 80 H (21-72) U/L Albumin 3.1 L (3.5-5.0) g/dL Microbiology - Last 24 Hours (Table) 04/14/17 13:21 Blood Culture - Preliminary Blood No Growth after 48 hours Assessment and Plan Plan: #1 sepsis secondary to a community-acquired pneumonia #2 hypertension, accelerated with no urgency features #3 underlying dementia #4 CAD #5 history of pulmonary embolism #6 dyslipidemia #7 previous history of CVA #8 indeterminate troponin leak #9 acute metabolic encephalopathy likely secondary to #1 and mild hypoxia intermittently Plan Renal function appears to be stable. Aspiration precautions Patient will need a speech therapy evaluation If patient's to be fed will need 1-1 monitoring This could be highly suspicious in a patient with dementia were the deglutation reflex is affected with any acute illness.
[2017-04-16] MEDS: FUROSEMIDE 40 MG TAB PO SCH (16:41)
[2017-04-16 17:17] LABS: Glucose,Whole Blood 81 mg/dL (75-99)
[2017-04-16 20:44] LABS: Glucose,Whole Blood 100 mg/dL (75-99)
[2017-04-16] MEDS: ATORVASTATIN 20 MG TAB PO SCH (21:02)
[2017-04-16] MEDS: INSULIN GLARGINE 100 UNIT/ML 10 ML VIAL SQ SCH (21:02)
[2017-04-16] MEDS: DONEPEZIL 10 MG TAB PO SCH (21:02)
--- NOTE | 2017-04-16 21:26 | CONS ---
CONSULTATION Mr. Archuleta, an 86 -year-old male patient came to the Hospital with mental status changes. He was brought upstairs because of an episode of shortness of breath. He cannot give me much of a history. According to the nurse, he was short of breath and he had an abnormal single abnormal troponin drawn 2 days back. He is barely arousable at this time. He looks comfortable. He did get 1 dose of Lasix. PAST MEDICAL PROBLEMS: Include atrial fibrillation. He is on Eliquis for this. Coronary artery disease. History of dementia, diabetes, pulmonary embolism, prostate cancer, insulin dependent diabetes. REVIEW OF SYSTEMS: Not available. ALLERGIES: No known drug allergies. MEDICATIONS: 1. Include amlodipine. 2. Vitamins. 3. Crestor. 4. Losartan. 5. Hydrochlorothiazide. 6. Insulin. 7. Carvedilol. 8. Aspirin. 9. Eliquis. EXAMINATION: His blood pressure is 149/79 mmHg, 120/65. 126/72 mmHg. Pulse rate in the 70s. HEART: Sounds S1, S2 are soft. Breath sounds are reduced bilaterally with poor respiratory effort. ABDOMEN: Soft. IMPRESSION: An episode of shortness of breath in this elderly gentleman who has dementia with one single borderline troponin that was abnormal 2 days prior. Suggest Lasix 40 mg p.o. daily. Continue Eliquis, continue baby aspirin and statins. If his blood pressure is consistently above 140/90 mmHg, the dose of amlodipine may be increased to 5 mg p.o. daily. There is no consideration for any invasive cardiac workup in this gentleman, medical treatment and addressing code status is recommended. MMODL / IJN: [id number] /
[2017-04-17 02:48] LABS: Glucose,Whole Blood 108 mg/dL (75-99)
[2017-04-17 05:52] LABS: Anisocytosis Slight; Basophils % (A) 0 %; CH 26.2; CHCM 31.9; Eosinophils # (A) 0.1 k/uL (0-0.7); Eosinophils % (A) 1 %; HCT 35.9 % (39.0-53.0); HDW 2.98; HGB 11.2 gm/dL (13.0-17.5); Hypochromasia Slight; Luc # (Auto) 0.28; Luc % (Auto) 2; Lymphocytes # (A) 1.3 k/uL (1.0-4.8); Lymphocytes % (A) 9 %; MCH 25.8 pg (25.0-35.0); MCHC 31.1 g/dL (31.0-37.0); MCV 82.8 fL (80.0-100.0); Monocytes # (A) 0.8 k/uL (0-1.0); Monocytes % (A) 6 %; Neutrophils # (A) 11.5 k/uL (1.3-7.7); Neutrophils % (A) 82 %; RBC 4.34 m/uL (4.30-5.90); RDW 17.2 % (11.5-15.5); WBC (Perox) 14.08
[2017-04-17 06:01] LABS: Calcium 9.2 mg/dL (8.4-10.2); Potassium 4.1 mmol/L (3.5-5.1); Total Bilirubin 0.6 mg/dL (0.2-1.3); Total Protein 6.8 g/dL (6.3-8.2)
[2017-04-17 06:13] LABS: Glucose,Whole Blood 122 mg/dL (75-99)
[2017-04-17] MEDS: INSULIN LISPRO (humaLOG) 300 UNIT/3 ML VIAL SQ SCH ×4 (06:42→20:22)
[2017-04-17] MEDS: CARVEDILOL 6.25 MG TAB PO SCH ×2 (06:42→18:06)
[2017-04-17] MEDS: IPRATROPIUM-ALBUTEROL 3 ML NEB INHALATION SCH ×4 (08:05→20:24)
[2017-04-17] MEDS: VIT A,C & E-LUTEIN-MINERALS 1 EACH TAB PO SCH ×2 (09:04→20:21)
[2017-04-17] MEDS: amLODIPine 2.5 MG TAB PO SCH (09:04)
[2017-04-17] MEDS: FUROSEMIDE 40 MG TAB PO SCH (09:04)
[2017-04-17] MEDS: APIXABAN 2.5 MG TABLET PO SCH ×2 (09:04→20:12)
[2017-04-17] MEDS: CALCIUM CARB-VIT D 500MG-200UN 1 EACH TAB PO SCH ×2 (09:04→20:26)
[2017-04-17] MEDS: ASPIRIN 81 MG PO SCH (09:04)
[2017-04-17] MEDS: AMPICILLIN-SULBACTAM 1.5 GM in SODIUM CHLORIDE 0.9% 50 ML IVPB SCH ×2 (09:09→20:11)
[2017-04-17] MEDS: NYSTATIN 100,000UNIT/GM CREAM 30 GM TUBE TOPICAL SCH ×3 (09:10→20:21)
[2017-04-17 11:50] LABS: Glucose,Whole Blood 143 mg/dL (75-99)
[2017-04-17] MEDS: traMADol 50 MG TAB PO PRN (15:45)
[2017-04-17] MEDS: AZITHROMYCIN 500 MG TAB PO SCH (15:45)
[2017-04-17 17:32] LABS: Glucose,Whole Blood 152 mg/dL (75-99)
--- NOTE | 2017-04-17 18:49 | CT ---
EXAMINATION TYPE: CT chest wo con DATE OF EXAM: 04/17/2017 COMPARISON: NONE HISTORY: Patient poor historian. Pneumonia. CT DLP: 561.6 mGycm. Automated Exposure Control for Dose Reduction was Utilized. TECHNIQUE: CT scan of the thorax is performed without IV contrast. FINDINGS: LUNGS: There is airspace opacity in the left lower lobe with air bronchograms consistent with pneumon ia. There is a small left-sided pleural effusion. There is also dependent atelectasis noted at the [facility] lung base with a few foci of air bronchograms which could be due to pneumonia on the right also. There is no pneumothorax. There is no emphysema. MEDIASTINUM: Lack of IV contrast is noted to limit evaluation for mediastinal and especially hilar ad enopathy. There are no definitive greater than 1 cm hilar or mediastinal lymph nodes. No cardiomega ly or pericardial effusion is seen. There is significant coronary arterial calcifications. The right kidney is diminutive and atrophic. OTHER: No additional significant abnormality is seen. IMPRESSION: Pneumonia is noted in the left lower lobe is also small focus in the right lower lobe. Th ere is a small left-sided pleural effusion.
[2017-04-17] MEDS: ATORVASTATIN 20 MG TAB PO SCH (20:12)
[2017-04-17] MEDS: DONEPEZIL 10 MG TAB PO SCH (20:12)
[2017-04-17 20:21] LABS: Glucose,Whole Blood 268 mg/dL (75-99)
[2017-04-17] MEDS: INSULIN GLARGINE 100 UNIT/ML 10 ML VIAL SQ SCH (20:23)
--- NOTE | 2017-04-17 23:13 | PN ---
PROGRESS NOTE CHIEF COMPLAINT: 86-year-old, white male, admitted with pneumonia and altered mental status. Hypoxemia. He has a history of dementia. His sensorium is clearing up since I have seen a couple days ago. He is talking more, answered questions appropriate although his eyes are mostly shot, he does open his eyes though. He asked if he is still in the hospital but he is asking appropriate questions at this time compared to before where he was more somnolent before. Vital signs at this time include: Blood pressure 143/71, O2 92% on 2 L. Temp 98.3, pulse 77 to 80, respiratory 18 to 22. Cardiovascular S1, S2. Lungs scattered rhonchi and wheeze. Hematological: Negative Homans. Psych: Fair mood and affect. Neurologic: Alert and orient times one, sometimes two. Not sure where he is it. ASSESSMENT: 1. Pneumonia. 2. Acute respiratory distress. 3. History of chronic obstructive pulmonary disease. 4. History of possible he has elevated troponin and cardiology recently cleared him from a cardiac standpoint. They gave him one dose of Lasix. 5. His white count is improving with IV antibiotics. 6. His bilateral airspace disease is improving on chest x-ray. I am going to do a CT scan just to make sure of the lungs without contrast. 7. He has acute and chronic renal insufficiency. 8. History of dementia. 9. History of atherosclerotic heart disease. Continue current treatment with IV antibiotics empirically. Check CT scan. Check labs. Please see further orders in the chart. MMODL / IJN: [id number] /
[2017-04-18 05:43] LABS: Glucose,Whole Blood 85 mg/dL (75-99)
[2017-04-18 06:02] LABS: Anisocytosis Slight; Basophils # (A) 0.1 k/uL (0-0.2); Basophils % (A) 0 %; CH 26.2; CHCM 31.7; Eosinophils # (A) 0.1 k/uL (0-0.7); Eosinophils % (A) 0 %; HCT 33.6 % (39.0-53.0); HDW 2.98; HGB 10.4 gm/dL (13.0-17.5); Hypochromasia Slight; Luc # (Auto) 0.26; Luc % (Auto) 2; Lymphocytes # (A) 1.3 k/uL (1.0-4.8); Lymphocytes % (A) 9 %; MCH 25.7 pg (25.0-35.0); MCHC 30.9 g/dL (31.0-37.0); MCV 83.1 fL (80.0-100.0); Mean Platelet Volume 8.3; Monocytes # (A) 0.8 k/uL (0-1.0); Monocytes % (A) 5 %; Neutrophils # (A) 12.1 k/uL (1.3-7.7); Neutrophils % (A) 84 %; RBC 4.04 m/uL (4.30-5.90); RDW 17.2 % (11.5-15.5); WBC 14.5 k/uL (3.8-10.6); WBC (Perox) 15.65
[2017-04-18 06:25] LABS: Calcium 9.1 mg/dL (8.4-10.2); Potassium 3.9 mmol/L (3.5-5.1); Total Bilirubin 0.5 mg/dL (0.2-1.3); Total Protein 6.3 g/dL (6.3-8.2)
[2017-04-18] MEDS: INSULIN LISPRO (humaLOG) 300 UNIT/3 ML VIAL SQ SCH ×4 (07:37→22:45)
[2017-04-18] MEDS: AMPICILLIN-SULBACTAM 1.5 GM in SODIUM CHLORIDE 0.9% 50 ML IVPB SCH ×2 (07:53→22:44)
[2017-04-18] MEDS: CARVEDILOL 6.25 MG TAB PO SCH ×2 (08:03→17:24)
[2017-04-18] MEDS: NYSTATIN 100,000UNIT/GM CREAM 30 GM TUBE TOPICAL SCH ×2 (08:03→18:21)
[2017-04-18] MEDS: APIXABAN 2.5 MG TABLET PO SCH ×2 (08:03→20:27)
[2017-04-18] MEDS: CALCIUM CARB-VIT D 500MG-200UN 1 EACH TAB PO SCH ×2 (08:03→20:28)
[2017-04-18] MEDS: VIT A,C & E-LUTEIN-MINERALS 1 EACH TAB PO SCH ×2 (08:03→20:28)
[2017-04-18] MEDS: FUROSEMIDE 40 MG TAB PO SCH (08:03)
[2017-04-18] MEDS: amLODIPine 2.5 MG TAB PO SCH (08:03)
[2017-04-18] MEDS: ASPIRIN 81 MG PO SCH (08:04)
[2017-04-18] MEDS: IPRATROPIUM-ALBUTEROL 3 ML NEB INHALATION SCH ×4 (08:08→19:42)
--- NOTE | 2017-04-18 10:18 | ECHOF ---
Referral Reason:lv function MEASUREMENTS -------- HEIGHT: 170.2 cm WEIGHT: 100.7 kg BP: 149/75 RVIDd: 2.8 cm (< 3.3) IVSd: 1.3 cm (0.6 - 1.1) LVIDd: 4.4 cm (3.9 - 5.3) LVPWd: 1.3 cm (0.6 - 1.1) IVSs: 1.5 cm LVIDs: 3.4 cm LVPWs: 1.4 cm LA Diam: 2.6 cm (2.7 - 3.8) LAESV Index (A-L): 19.63 ml/m Ao Diam: 3.5 cm (2.0 - 3.7) AV Cusp: 2.0 cm (1.5 - 2.6) MV EXCURSION: 15.618 mm (> 18.000) MV EF SLOPE: 60 mm/s (70 - 150) EPSS: 0.5 cm MV E Genaro: 0.86 m/s MV DecT: 214 ms MV A Genaro: 1.08 m/s MV E/A Ratio: 0.80 RAP: 5.00 mmHg RVSP: 37.58 mmHg FINDINGS -------- Sinus rhythm. This was a technically adequate study. The left ventricular size is normal. There is moderate concentric left ventricular hypertrophy. Overall left ventricular systolic function is mildly impaired with, an EF between 45 - 50 %. Basal inferior LV wall motion is hypokinetic. Basal inferoseptal LV wall motion is hypokinetic. The right ventricle is normal in size. Normal LA size by volume 22+/-6 ml/m2. The right atrium is normal in size. Aortic valve is trileaflet and is mildly thickened. Mild mitral annular calcification present. There is trace mitral regurgitation. Mild tricuspid regurgitation present. There is mild pulmonary hypertension. The right ventricular systolic pressure, as measured by Doppler, is 37.58mmHg. Trace/mild (physiologic) pulmonic regurgitation. The aortic root size is normal. Normal inferior vena cava with normal inspiratory collapse consistent with estimated right atrial pressure of 5 mmHg. There is a small, generalized pericardial effusion present. CONCLUSIONS -------- 1. Sinus rhythm. 2. The right atrium is normal in size. 3. Aortic valve is trileaflet and is mildly thickened. 4. Mild mitral annular calcification present. 5. There is trace mitral regurgitation. 6. Mild tricuspid regurgitation present. 7. There is mild pulmonary hypertension. 8. The right ventricular systolic pressure, as measured by Doppler, is 37.58mmHg. 9. Trace/mild (physiologic) pulmonic regurgitation. 10. The aortic root size is normal. 11. Normal inferior vena cava with normal inspiratory collapse consistent with estimated right atrial pressure of 5 mmHg. 12. This was a technically adequate study. 13. There is a small, generalized pericardial effusion present. 14. The left ventricular size is normal. 15. There is moderate concentric left ventricular hypertrophy. 16. Overall left ventricular systolic function is mildly impaired with, an EF between 45 - 50 %. 17. Basal inferior LV wall motion is hypokinetic. 18. Basal inferoseptal LV wall motion is hypokinetic. 19. The right ventricle is normal in size. 20. Normal LA size by volume 22+/-6 ml/m2. UPHOLSTERY BUNDLER: Eva David RDCS
--- NOTE | 2017-04-18 11:02 | PN ---
PROGRESS NOTE DATE OF SERVICE: 04/18/2017. SUBJECTIVE: An 86-year-old white male admitted for pneumonia. Empiric antibiotics were given with vanc and Zosyn. Chest CT last night showed pneumonia in the left lower lobe and a small focus in the right lower lobe, and a small left-sided pleural effusion. He has bilateral pneumonia at this time. He will remain on antibiotics with vancomycin and Zosyn as well as DuoNeb updrafts. He is on Zithromax through IV as well as Zosyn for pneumonia. She is on Eliquis for atrial fibrillation, Norvasc low dose 2.5 mg to control blood pressure along with Coreg. He is on Aricept for dementia. There is an increase obtundation in the past 2 to 4 days since he has been here, which is improving on a daily basis secondary to metabolic encephalopathy secondary to pneumonia. His sugars have been decent with his Lantus and Accu-Chek protocol. He is on nystatin topical for candidiasis under the groin area. He remains on Rocephin 1 gram a day, Zithromax 500 mg a day, Zosyn 1.5 mg every 12 hours. LABORATORY DATA: Show white count is down to 14.5, hemoglobin 10.4, sodium 146, BUN is 41, creatinine 1.65. Sugars are in the mid 100s to 200s, down to 85 this morning. Liver enzymes are going to 105, 100 and 152. Albumin is low at 3. ASSESSMENT: 1. Bilateral pneumonia. Suspect gram-negative pneumonia. 2. Stage 3B renal insufficiency. 3. Diabetes mellitus. 4. Moderate protein calorie malnutrition. 5. Elevated liver enzymes, probably due to fatty liver. 6. Leukocytosis secondary to pneumonia. 7. Acute hypoxemic respiratory failure secondary to pneumonia and chronic obstructive pulmonary disease. 8. Acute on chronic anemia. PLAN: Continue current treatment. Followup in the next 24 to 48 hours. Maintained on triple antibiotic therapy. The patient is slowly improving. May need rehab center due to poor strength. MMODL / IJN: [id number] /
[2017-04-18 12:01] LABS: Glucose,Whole Blood 162 mg/dL (75-99)
[2017-04-18] MEDS: AZITHROMYCIN 500 MG TAB PO SCH (15:32)
[2017-04-18 16:34] LABS: Glucose,Whole Blood 172 mg/dL (75-99)
[2017-04-18] MEDS: ATORVASTATIN 20 MG TAB PO SCH (20:27)
[2017-04-18] MEDS: DONEPEZIL 10 MG TAB PO SCH (20:28)
[2017-04-18 21:13] LABS: Glucose,Whole Blood 148 mg/dL (75-99)
[2017-04-18] MEDS: INSULIN GLARGINE 100 UNIT/ML 10 ML VIAL SQ SCH (22:44)
[2017-04-19 06:04] LABS: Glucose,Whole Blood 79 mg/dL (75-99)
[2017-04-19 06:31] LABS: Calcium 9.1 mg/dL (8.4-10.2); Potassium 3.5 mmol/L (3.5-5.1); Total Bilirubin 0.3 mg/dL (0.2-1.3); Total Protein 6.2 g/dL (6.3-8.2)
[2017-04-19] MEDS: CARVEDILOL 6.25 MG TAB PO SCH ×2 (07:25→16:15)
[2017-04-19 07:26] LABS: Anisocytosis Slight; Basophils % (A) 0 %; CH 25.1; CHCM 30.5; Eosinophils # (A) 0.2 k/uL (0-0.7); Eosinophils % (A) 2 %; HCT 32.5 % (39.0-53.0); HDW 2.86; HGB 10.2 gm/dL (13.0-17.5); Hypochromasia Marked; Luc # (Auto) 0.23; Luc % (Auto) 2; Lymphocytes # (A) 1.8 k/uL (1.0-4.8); Lymphocytes % (A) 17 %; MCH 25.9 pg (25.0-35.0); MCHC 31.3 g/dL (31.0-37.0); MCV 82.8 fL (80.0-100.0); Mean Platelet Volume 8.3; Monocytes # (A) 0.5 k/uL (0-1.0); Monocytes % (A) 5 %; Neutrophils # (A) 7.6 k/uL (1.3-7.7); Neutrophils % (A) 73 %; RBC 3.92 m/uL (4.30-5.90); RDW 16.4 % (11.5-15.5); WBC 10.4 k/uL (3.8-10.6); WBC (Perox) 10.81
[2017-04-19] MEDS: NYSTATIN 100,000UNIT/GM CREAM 30 GM TUBE TOPICAL SCH ×3 (07:35→16:15)
[2017-04-19] MEDS: INSULIN LISPRO (humaLOG) 300 UNIT/3 ML VIAL SQ SCH ×4 (07:54→22:26)
[2017-04-19] MEDS: IPRATROPIUM-ALBUTEROL 3 ML NEB INHALATION SCH ×4 (08:26→20:04)
[2017-04-19 08:28] LABS: Manual Review Performed
[2017-04-19] MEDS: FUROSEMIDE 40 MG TAB PO SCH (09:11)
[2017-04-19] MEDS: VIT A,C & E-LUTEIN-MINERALS 1 EACH TAB PO SCH ×2 (09:11→22:25)
[2017-04-19] MEDS: APIXABAN 2.5 MG TABLET PO SCH ×2 (09:11→22:25)
[2017-04-19] MEDS: amLODIPine 2.5 MG TAB PO SCH (09:11)
[2017-04-19] MEDS: ASPIRIN 81 MG PO SCH (09:11)
[2017-04-19] MEDS: CALCIUM CARB-VIT D 500MG-200UN 1 EACH TAB PO SCH ×2 (09:11→22:26)
[2017-04-19] MEDS: AMPICILLIN-SULBACTAM 1.5 GM in SODIUM CHLORIDE 0.9% 50 ML IVPB SCH ×2 (09:48→22:25)
[2017-04-19 11:50] LABS: Glucose,Whole Blood 172 mg/dL (75-99)
[2017-04-19] MEDS: AZITHROMYCIN 500 MG TAB PO SCH (16:15)
[2017-04-19 16:37] LABS: Glucose,Whole Blood 131 mg/dL (75-99)
[2017-04-19] MEDS: BUDESONIDE 0.5 MG/2 ML NEBU INHALATION SCH (20:04)
[2017-04-19 21:21] LABS: Glucose,Whole Blood 195 mg/dL (75-99)
[2017-04-19] MEDS: ATORVASTATIN 20 MG TAB PO SCH (22:25)
[2017-04-19] MEDS: DONEPEZIL 10 MG TAB PO SCH (22:25)
[2017-04-19] MEDS: INSULIN GLARGINE 100 UNIT/ML 10 ML VIAL SQ SCH (22:26)
[2017-04-19] MEDS: traMADol 50 MG TAB PO PRN (22:49)
[2017-04-20 05:52] LABS: Glucose,Whole Blood 78 mg/dL (75-99)
[2017-04-20] MEDS: CARVEDILOL 6.25 MG TAB PO SCH (07:07)
[2017-04-20] MEDS: NYSTATIN 100,000UNIT/GM CREAM 30 GM TUBE TOPICAL SCH (07:09)
[2017-04-20] MEDS: IPRATROPIUM-ALBUTEROL 3 ML NEB INHALATION SCH ×3 (08:12→15:51)
[2017-04-20] MEDS: BUDESONIDE 0.5 MG/2 ML NEBU INHALATION SCH (08:12)
[2017-04-20] MEDS: INSULIN LISPRO (humaLOG) 300 UNIT/3 ML VIAL SQ SCH ×2 (09:25→12:17)
[2017-04-20] MEDS: APIXABAN 2.5 MG TABLET PO SCH (09:44)
[2017-04-20] MEDS: VIT A,C & E-LUTEIN-MINERALS 1 EACH TAB PO SCH (09:45)
[2017-04-20] MEDS: CALCIUM CARB-VIT D 500MG-200UN 1 EACH TAB PO SCH (09:45)
[2017-04-20] MEDS: ASPIRIN 81 MG PO SCH (09:45)
[2017-04-20] MEDS: FUROSEMIDE 40 MG TAB PO SCH (09:45)
--- NOTE | 2017-04-20 10:02 | PN ---
PROGRESS NOTE DATE OF SERVICE: 04/19/2017 HISTORY OF PRESENT ILLNESS: Patient is an 86-year-old male who initially had been taken to the clinic and was told that he had pneumonia, was ordered medication, was only able to get two doses in due to problems with altered mental status changes and extreme tiredness. Subsequently, he was brought into the emergency room, was seen, was admitted with acute mental status changes and pneumonia and was started on antibiotic therapy. He does have a significant history of Alzheimer's disease, where he had not been having treatment for about 4 months. He also has a significant history of diabetes mellitus, coronary artery disease and a history of prostate cancer. Patient is seen. He is able to answer some questions for me with lots of provoking him. He is sitting up in chair. He is dozing off and on. He appears a little bit hard of hearing. He has denied any problems with nausea, vomiting, or diarrhea or constipation. He states that he is eating okay. He denies any pain at this time. States his breathing is okay. I do have to frequently repeat myself. There is no family present at examination time. PATIENT'S ALLERGIES: None known. PATIENT'S HOME MEDICATIONS INCLUDE: Nystatin cream t.i.d., Norvasc 2.5 mg daily, multivitamin cap twice a day, Crestor 10 mg at bedtime, Losartan with hydrochlorothiazide 100/12.5 mg daily, insulin lispro a.c. and at bedtime, Toujeo 40 units subcutaneous at bedtime, doxycycline hyclate 100 mg twice a day, Aricept 10 mg at bedtime, Coreg 6.25 mg twice a day, calcium with vitamin D twice a day, aspirin 81 mg daily and Eliquis 2.5 mg twice a day. FAMILY HISTORY: Significant for both parents being . Mother has history of CVA with dementia and father from stomach cancer, though patient thought maybe he also had lung cancer. SOCIAL HISTORY: Patient is , has 4 children. He states they are all alive and well. He states he is still smoking since a teenager, that he will smoke 1 pack per week. He states that he has a shot or two daily. He used to do office work. He wears glasses and dentures. PAST SURGICAL HISTORY: Includes coronary artery bypass graft x5, skin cancer, bilateral cataracts, hernia repair, prostate cancer surgery, blepharoplasty x2 and eye repair for detached retina. PAST MEDICAL HISTORY: Significant for shingles, bilateral macular degeneration, CAD, prostate cancer, dementia, diabetes mellitus, hyperlipidemia, pulmonary embolism, atrial fibrillation. CVA/TIA, hypertension, pneumonia. REVIEW OF SYSTEMS: Completed with the patient to the best of his capability with some questionable confusion. Head-to-toe assessment was done and is essentially negative other than what is noted in his HPI. PHYSICAL EXAMINATION: His vital signs show temperature 98, heart rate 70, respiratory rate 18, blood pressure 125/71, oxygen saturation 98% on 2 L. LABS: WBCs are 10.4, hemoglobin 10.2, hematocrit 32.5, platelets are 325. Sodium is 142, potassium is 3.5, chloride 101, carbon dioxide 30, BUN 36, creatinine is 1.66, glucose 76, calcium 9.1, total bilirubin 0.3, AST 132, ALT 127, alkaline phosphatase 137, total protein 6.2, albumin is 2.9. Blood cultures with no growth. CT of the chest with pneumonia to the left lower lobe with small focus in the right lower lobe and small left-sided pleural effusion. GENERAL: Patient is an 86-year-old male who appears comfortable, sitting up in chair. HEENT: Head is atraumatic, normocephalic. Pupils are equal, reactive. He does have problems with his lower eyelids folding over and reddish in color. Mucous membrane is moist. Neck is short, supple, thick. No JVD. Lungs sounds were diminished. No rales or wheezes heard at this time. CARDIOVASCULAR: S1, S2 is heard, irregular. Abdomen is soft. Bowel sounds are present. No obvious masses or organomegaly are palpated. No rebound or rigidity. He does have dejon to the groin area. EXTREMITIES: Mild edema. NEUROLOGIC: He is awake, alert. He still is somewhat confused. IMPRESSION: 1. Bilateral pneumonia, possible aspiration. 2. Sepsis. 3. Acute mental status changes. 4. Diabetes mellitus, insulin dependent. 5. Atrial fibrillation with a history of pulmonary embolism. 6. Hypertension. 7. Elevated liver enzymes. 8. Suspect chronic obstructive pulmonary disease exacerbation. 9. Acute on chronic renal insufficiency. PLAN: Patient needs to continue with medications as ordered. Continue his nebulizer treatments q.i.d. Continue with antibiotics as ordered and may require a swallow eval due to his lethargy. Continue with GI and DVT prophylaxis. Case was discussed with Dr. Kenney. He did have a echo done that showed EF of 45% to 50% and RVSP of 37.58 mmHg, suggestive of mild pulmonary hypertension. Thank you for the consultation. Will continue to follow patient closely with you and make further changes as necessary. HARJIT / CECELIAN: [id number] /
[2017-04-20] MEDS: AMPICILLIN-SULBACTAM 1.5 GM in SODIUM CHLORIDE 0.9% 50 ML IVPB SCH (10:15)
[2017-04-20 10:55] VITALS: BMI 33.8
[2017-04-20 12:04] LABS: Glucose,Whole Blood 232 mg/dL (75-99)
[2017-04-20 12:08] VITALS: BP 135/65; PULSE 64; RESP 18; TEMP 97.7
[2017-04-20] MEDS: amLODIPine 2.5 MG TAB PO SCH (12:17)
--- NOTE | 2017-04-20 14:14 | DS ---
DISCHARGE SUMMARY DISCHARGE MEDICATIONS: 1. Norvasc 2.5 mg daily. 2. Eliquis 2.5 b.i.d. 3. Lipitor 20 daily. 4. Pulmicort 0.5 mg b.i.d. 5. Coreg 6.25 b.i.d. 6. Augmentin 875 one b.i.d. for 7 days. 7. Azithromycin 500 mg daily for 7 days. 8. Aricept 10 mg daily. 9. Lasix 20 mg daily. 10.Lasix 40 mg daily. 11.Lantus 40 units subcutaneous daily. 12.Updrafts q.i.d. 13.Tramadol 50 q.6 p.r.n. CONDITION: Stable. PROGNOSIS: Guarded. Ambulate as tolerated. Follow up with Dr. Gold in the [facility]. HOSPITAL COURSE OF EVENTS: This is a white male, 86 years old, came in with bilateral pneumonia with altered sensorium, metabolic encephalopathy. Patient was seen by Cardiology who cleared from a cardiac standpoint. A diabetes history with protocol. His white count was 16.8 down to 10.4 at discharge. His BUN is 36 and creatinine 1.66 on discharge for acute on chronic renal insufficiency. Has elevated liver enzymes which will be needed to follow up as an outpatient for possible gallbladder issue. Patient is stabilized from a medical standpoint for pneumonia. His altered sensorium improved. He is still lightheaded, dizzy. Would need to go to a [facility] for placement for week or two under Dr. Norm Gold's care for pneumonia treatment. MMODL / IJN: [id number] /
--- NOTE | 2017-04-20 15:08 | PN ---
PROGRESS NOTE DATE OF SERVICE: 04/20/2017 He is in no respiratory distress. He seems to be doing better, overall. He denies any chest pain. He is pleasantly confused. PHYSICAL EXAMINATION: Blood pressure is 114/59, respiratory rate of 20, pulse rate of 63, temperature 97.4, O2 sat on 2 L by nasal cannula is 100% HEENT is unremarkable. Chest reveals scattered crackles in the bases. Cardiovascular system reveals an S1, S2. Abdomen is soft. There is no edema. IMPRESSION: 1. Alzheimer's-type dementia. 2. Aspiration-type pneumonia. Switch him to oral antibiotics. Narrow his antibiotic coverage. Agree with possible discharge planning on him at this time. MMODL / IJN: [id number] /
[2017-04-20] MEDS ORDERED: AMOXIC-POT CLAV 500-125 MG 1 EACH TAB PO SCH (21:00)
== END 2017-04-20 19:02 | DRG 871 ==
LOC: EC 12:29 → 6SEL 15:54 → 5MS5E 04-15 16:01 → 6SEL 04-15 20:06
PROVIDERS: ADMIT Family Medicine; ATTEND Family Medicine
DX: A41.9 Sepsis, unspecified organism (principal); G93.41 Metabolic encephalopathy; J69.0 Pneumonitis due to inhalation of food and vomit; J96.01 Acute respiratory failure with hypoxia; J90 Pleural effusion, not elsewhere classified; E44.0 Moderate protein-calorie malnutrition; G30.9 Alzheimer's disease, unspecified; E11.22 Type 2 diabetes mellitus with diabetic chronic kidney disease; I48.91 Unspecified atrial fibrillation; J44.9 Chronic obstructive pulmonary disease, unspecified; I12.9 Hypertensive chronic kidney disease with stage 1 through stage 4 chronic kidney disease, or unspecified chronic kidney disease; B37.9 Candidiasis, unspecified; F02.80 Dementia in other diseases classified elsewhere, unspecified severity, without behavioral disturbance, psychotic disturbance, mood disturbance, and anxiety; E78.5 Hyperlipidemia, unspecified; D64.9 Anemia, unspecified; H35.30 Unspecified macular degeneration; H91.90 Unspecified hearing loss, unspecified ear; I25.10 Atherosclerotic heart disease of native coronary artery without angina pectoris; K76.0 Fatty (change of) liver, not elsewhere classified; N18.9 Chronic kidney disease, unspecified; Z79.01 Long term (current) use of anticoagulants; Z79.4 Long term (current) use of insulin; Z79.82 Long term (current) use of aspirin; Z79.899 Other long term (current) drug therapy; Z80.0 Family history of malignant neoplasm of digestive organs; Z85.46 Personal history of malignant neoplasm of prostate; Z85.828 Personal history of other malignant neoplasm of skin; Z86.711 Personal history of pulmonary embolism; Z86.73 Personal history of transient ischemic attack (TIA), and cerebral infarction without residual deficits; Z87.891 Personal history of nicotine dependence; Z95.1 Presence of aortocoronary bypass graft
CPT/HCPCS: 36415; 70450; 71010; 71020; 71250; 80053; 81001; 82140; 82550; 82553; 83036; 83605; 83880; 84484; 84550; 85025; 85379; 85610; 85730; 87040; 93005; 93306; 94640; 94760; 96374; 99291

== ENCOUNTER 2018-04-29 17:35 | Inpatient (IN) | payer MEDICARE, OTHER ==
--- NOTE | 2018-04-29 17:49 | ED ---
General Adult HPI - General Chief complaint: Altered Mental Status Stated complaint: Altered mental status Time Seen by Provider: 04/29/18 17:40 Source: EMS, RN notes reviewed Mode of arrival: EMS Limitations: altered mental status, physical limitation - History of Present Illness Initial comments: Patient is an 87-year-old male presenting to emergency Department by EMS for change in mental status. Patient has limited verbal capability and is a very poor historian. Patient reportedly last seen well around 2:00 before taking a nap. Family did find patient altered. Family also had concerns for possible left-sided facial droop. Further history is limited. - Related Data Home Medications Medication Instructions Recorded Confirmed Apixaban [Eliquis] 2.5 mg PO BID 04/14/17 04/29/18 Aspirin EC [Ecotrin Low Dose] 81 mg PO DAILY 04/14/17 04/29/18 Carvedilol [Coreg] 6.25 mg PO BID 04/14/17 04/29/18 Donepezil [Aricept] 10 mg PO HS 04/14/17 04/29/18 Insulin Glargine,Hum.rec.anlog 40 units SQ HS 04/14/17 04/29/18 [Toujeo Solostar] Vit A/Vit C/Vit E/Zinc/Copper 1 cap PO BID 04/14/17 04/29/18 [ICAPS SOFTGEL] amLODIPine [Norvasc] 2.5 mg PO DAILY 04/14/17 04/29/18 Atorvastatin [Lipitor] 20 mg PO HS 04/20/17 04/29/18 Furosemide [Lasix] 40 mg PO DAILY 04/20/17 04/29/18 traMADol HCl [Ultram] 50 mg PO Q6H PRN 04/20/17 04/29/18 Allergies Allergy/AdvReac Type Severity Reaction Status Date / Time No Known Allergies Allergy Verified 04/29/18 18:09 Review of Systems ROS Statement: Those systems with pertinent positive or pertinent negative responses have been documented in the HPI. ROS Other: All systems not noted in ROS Statement are negative. Limitations: ROS unobtainable due to patients medical condition Past Medical History Past Medical History: Coronary Artery Disease (CAD), Cancer, CVA/TIA, Dementia, Diabetes Mellitus, Eye Disorder, Hyperlipidemia, Hypertension, Memory Impairment , Pneumonia, Prostate Disorder, Pulmonary Embolus (PE) Additional Past Medical History / Comment(s): prostate cancer,skin cancer, insulin dependent diabetes,katia macular degeneration, past detatched retina katia eyes had sx, past cataracs(sx), shingles 40 years ago, wears a brief. "yeast infection abd fold/groin area-has a prescription cream for it" History of Any Multi-Drug Resistant Organisms: None Reported Past Surgical History: Coronary Bypass/CABG, Hernia Repair, Prostate Surgery Additional Past Surgical History / Comment(s): 5 vessel bypass 2008, katia carotid sx, prostatectomy, katia eye retinal sx, bleheroplasty x2, catatacts Past Anesthesia/Blood Transfusion Reactions: Previous Problems w/ Anesthesia Additional Past Anesthesia/Blood Transfusion Reaction / Comment(s): increased confusion/hallucinating after sx Past Psychological History: No Psychological Hx Reported Smoking Status: Former smoker Past Alcohol Use History: None Reported Past Drug Use History: None Reported - Past Family History Mother Family Medical History: CVA/TIA, Dementia Father Family Medical History: Cancer Additional Family Medical History / Comment(s): from stomach cancer at 48 General Exam Limitations: altered mental status, physical limitation General appearance: other (Patient has eyes closed and opens to voice. Patient is verbal to first name and is able to say no. Patient can follow some simple commands that does improve as evaluation goes on.) Head exam: Present: atraumatic, normocephalic Eye exam: Present: normal appearance, PERRL, EOMI. Absent: nystagmus ENT exam: Present: normal oropharynx Neck exam: Present: normal inspection Respiratory exam: Present: normal lung sounds bilaterally Cardiovascular Exam: Present: regular rate, normal rhythm GI/Abdominal exam: Present: soft. Absent: tenderness Extremities exam: Present: normal inspection Neurological exam: Present: alert, altered, CN II-XII intact (Except there appears to be mild left facial droop), other (Somewhat limited exam, patient poor compliance and difficulty following some simple commands) Expanded Neurological exam: Present: protecting the airway Cranial nerves: EOM's Intact: Normal Motor strength exam: RUE: 5, LUE: 5, RLE: 3, LLE: 3 Eye Response: (3) open to voice Motor Response: (6) obeys commands Verbal Response: (3) inappropriate words Psychiatric exam: Present: flat affect Skin exam: Present: normal color Course Vital Signs 09/16/18 09/16/18 09/16/18 17:36 18:00 18:30 Temperature 97.1 F L Pulse Rate 58 L 54 L 55 L Respiratory 20 18 18 Rate Blood Pressure 181/87 168/85 165/73 O2 Sat by Pulse 93 L 98 98 Oximetry EKG Findings - EKG Comments: EKG Findings:: Sinus rhythm at 61. DC 148. QRS 142. QT 458. QTC 461. Left axis. Right bundle branch block. Inferior Q waves. No acute ST change. Medical Decision Making - Medical Decision Making Patient reevaluated and is further improved. Patient is able to say some simple sentences. Patient denies any complaints. Patient and family updated on results and plan. Family states that facial changes are chronic and unchanged. Case was earlier discussed with Dr. Reynolds who agreed that patient was not a candidate for TPA. Case was discussed with Dr. Patten, who will admit for Norm Maldonado. Neurology will be placed on consult. - Lab Data Result diagrams: 04/29/18 17:23 04/29/18 17:23 Lab Results 04/29/18 04/29/18 04/29/18 Range/Units 17:23 17:23 17:23 WBC 7.3 (3.8-10.6) k/uL RBC 4.92 (4.30-5.90) m/uL Hgb 11.2 L (13.0-17.5) gm/dL Hct 38.2 L (39.0-53.0) % MCV 77.6 L (80.0-100.0) fL MCH 22.7 L (25.0-35.0) pg MCHC 29.3 L (31.0-37.0) g/dL RDW 17.7 H (11.5-15.5) % Plt Count 292 (150-450) k/uL Neutrophils % 58 % Lymphocytes % 26 % Monocytes % 7 % Eosinophils % 6 % Basophils % 1 % Neutrophils # 4.3 (1.3-7.7) k/uL Lymphocytes # 1.9 (1.0-4.8) k/uL Monocytes # 0.5 (0-1.0) k/uL Eosinophils # 0.4 (0-0.7) k/uL Basophils # 0.1 (0-0.2) k/uL Hypochromasia Marked Anisocytosis Slight Microcytosis Slight PT (9.0-12.0) sec INR (<1.2) APTT (22.0-30.0) sec Sodium 141 (137-145) mmol/L Potassium 4.3 (3.5-5.1) mmol/L Chloride 104 (98-107) mmol/L Carbon Dioxide 26 (22-30) mmol/L Anion Gap 11 mmol/L BUN 38 H (9-20) mg/dL Creatinine 1.40 H (0.66-1.25) mg/dL Est GFR (CKD-EPI)AfAm 51 (>60 ml/min/1.73 sqM) Est GFR (CKD-EPI)NonAf 44 (>60 ml/min/1.73 sqM) Glucose 125 H (74-99) mg/dL POC Glucose (mg/dL) (75-99) mg/dL POC Glu Wet Finisher ID Calcium 9.1 (8.4-10.2) mg/dL Total Bilirubin 0.2 (0.2-1.3) mg/dL AST 24 (17-59) U/L ALT 19 L (21-72) U/L Alkaline Phosphatase 65 (38-126) U/L Total Creatine Kinase 60 (55-170) U/L CK-MB (CK-2) 1.3 (0.0-2.4) ng/mL CK-MB (CK-2) Rel Index 2.2 Troponin I <0.012 (0.000-0.034) ng/mL Total Protein 6.6 (6.3-8.2) g/dL Albumin 3.7 (3.5-5.0) g/dL 04/29/18 04/29/18 Range/Units 17:23 17:42 WBC (3.8-10.6) k/uL RBC (4.30-5.90) m/uL Hgb (13.0-17.5) gm/dL Hct (39.0-53.0) % MCV (80.0-100.0) fL MCH (25.0-35.0) pg MCHC (31.0-37.0) g/dL RDW (11.5-15.5) % Plt Count (150-450) k/uL Neutrophils % % Lymphocytes % % Monocytes % % Eosinophils % % Basophils % % Neutrophils # (1.3-7.7) k/uL Lymphocytes # (1.0-4.8) k/uL Monocytes # (0-1.0) k/uL Eosinophils # (0-0.7) k/uL Basophils # (0-0.2) k/uL Hypochromasia Anisocytosis Microcytosis PT 9.8 (9.0-12.0) sec INR 1.0 (<1.2) APTT 22.8 (22.0-30.0) sec Sodium (137-145) mmol/L Potassium (3.5-5.1) mmol/L Chloride (98-107) mmol/L Carbon Dioxide (22-30) mmol/L Anion Gap mmol/L BUN (9-20) mg/dL Creatinine (0.66-1.25) mg/dL Est GFR (CKD-EPI)AfAm (>60 ml/min/1.73 sqM) Est GFR (CKD-EPI)NonAf (>60 ml/min/1.73 sqM) Glucose (74-99) mg/dL POC Glucose (mg/dL) 126 H (75-99) mg/dL POC Glu Wet Finisher ID Lucy Bosch Calcium (8.4-10.2) mg/dL Total Bilirubin (0.2-1.3) mg/dL AST (17-59) U/L ALT (21-72) U/L Alkaline Phosphatase (38-126) U/L Total Creatine Kinase (55-170) U/L CK-MB (CK-2) (0.0-2.4) ng/mL CK-MB (CK-2) Rel Index Troponin I (0.000-0.034) ng/mL Total Protein (6.3-8.2) g/dL Albumin (3.5-5.0) g/dL - Radiology Data Radiology results: image reviewed (Computed tomography scan scan of the brain shows atrophy and chronic small vessel ischemia. No acute intercranial abnormality. Chest x-ray shows increased lung markings, probable pulmonary fibrosis.) Disposition Clinical Impression: Altered mental status Disposition: ADMITTED IP TO THIS HOSP Is patient prescribed a controlled substance at d/c from ED?: No Referrals: Norm Gold MD [Primary Care Provider] - 1-2 days Decision Time: 18:48
[2018-04-29 18:06] LABS: Anisocytosis Slight; Basophils # (A) 0.1 k/uL (0-0.2); Basophils % (A) 1 %; Eosinophils # (A) 0.4 k/uL (0-0.7); Eosinophils % (A) 6 %; HCT 38.2 % (39.0-53.0); HGB 11.2 gm/dL (13.0-17.5); Hypochromasia Marked; Lymphocytes # (A) 1.9 k/uL (1.0-4.8); Lymphocytes % (A) 26 %; MCH 22.7 pg (25.0-35.0); MCHC 29.3 g/dL (31.0-37.0); MCV 77.6 fL (80.0-100.0); Mean Platelet Volume 7.9; Microcytosis Slight; Monocytes # (A) 0.5 k/uL (0-1.0); Monocytes % (A) 7 %; Neutrophils # (A) 4.3 k/uL (1.3-7.7); Neutrophils % (A) 58 %; Platelet Count 292 k/uL (150-450); RBC 4.92 m/uL (4.30-5.90); RDW 17.7 % (11.5-15.5); WBC 7.3 k/uL (3.8-10.6)
[2018-04-29 18:11] LABS: Glucose,Whole Blood 126 mg/dL (75-99)
[2018-04-29 18:16] LABS: Partial Thromboplastin Time 22.8 sec (22.0-30.0); Prothrombin Time 9.8 sec (9.0-12.0)
[2018-04-29 18:18] LABS: Albumin 3.7 g/dL (3.5-5.0); Calcium 9.1 mg/dL (8.4-10.2); Potassium 4.3 mmol/L (3.5-5.1); Total Bilirubin 0.2 mg/dL (0.2-1.3); Total Protein 6.6 g/dL (6.3-8.2)
[2018-04-29 18:21] LABS: Creatine Kinase 60 U/L (55-170)
--- NOTE | 2018-04-29 18:30 | CT ---
EXAMINATION TYPE: CT brain wo con for TPA DATE OF EXAM: 04/29/2018 COMPARISON: 04/14/2017 HISTORY: Facial droop and patient unresponsive CT DLP: mGycm Automated exposure control for dose reduction was used. FINDINGS: There is cerebral cortical atrophy. There is extensive hypodensity in the periventricular white matte r. There is no mass effect nor midline shift. There is no sign of intracranial hemorrhage. The calvar ium is intact. IMPRESSION: CEREBRAL ATROPHY AND EXTENSIVE CHRONIC SMALL VESSEL ISCHEMIA. NO ACUTE INTRACRANIAL ABNORMALITY. NO C HANGE.
[2018-04-29 18:34] LABS: Creatine Kinase MB 1.3 ng/mL (0.0-2.4); Troponin I <0.012 ng/mL (0.000-0.034)
--- NOTE | 2018-04-29 18:34 | XR ---
EXAMINATION TYPE: XR chest 1V portable DATE OF EXAM: 04/29/2018 COMPARISON: 04/15/2017 HISTORY: Altered mental status TECHNIQUE: Single frontal view of the chest is obtained. FINDINGS: There is coarsening of the interstitial pulmonary markings.. There is suboptimal inspirati on. There are sternal wires. Thoracic aorta is atheromatous. IMPRESSION: Increased lung markings probably due to pulmonary fibrosis. Inspiration is worse than las t exam. No pulmonary consolidation. Mild heart failure not entirely excluded.
[2018-04-29] MEDS ORDERED: ASPIRIN 325 MG TAB PO STA (18:49)
--- NOTE | 2018-04-29 19:05 | CT ---
EXAMINATION TYPE: CT angio head neck DATE OF EXAM: 04/29/2018 HISTORY: Weakness COMPARISON: None CT DLP: mGycm. Automated Exposure Control for Dose Reduction was Utilized. TECHNIQUE: IV contrast was Isovue 80 mL. Multiple axial sections were obtained from the aortic arch t o the vertex of the brain. There are 3-D post processed images. FINDINGS: There is normal branching pattern of the great vessels on the aortic arch. There is atherom atous change in the aortic arch. There is patency of the common internal and external carotid arterie s bilaterally. There is minimal plaque at the carotid artery bifurcations and luminal narrowing less than 10%. There is bilateral arterial flow in the vertebral arteries which are fairly symmetric. Ther e is minimal plaque formation. There is no evidence of carotid or vertebral artery aneurysm or dissec tion. there is arterial flow in the vertebrobasilar artery system. There is arterial flow in the anterior middle and posterior cerebral arteries. There is arterial flow in the venous sinuses. There is no sunday dence of intracranial arterial stenosis. There is no sign of aneurysm or neovascularity. IMPRESSION: Mild atherosclerotic vascular disease. No evidence of aneurysm or stenosis.
[2018-04-29 19:33] LABS: Glucose,Whole Blood 123 mg/dL (75-99)
[2018-04-29 22:19] VITALS: BMI 32.5
[2018-04-29 22:25] LABS: Cholesterol 165 mg/dL (<200); HDL Cholesterol 38 mg/dL (40-60); LDL Cholesterol,Calculated 101 mg/dL (0-99); Triglycerides 130 mg/dL (<150)
[2018-04-29] MEDS ORDERED: traMADol 50 MG TAB PO PRN (23:18)
--- NOTE | 2018-04-29 23:37 | P.CNNES ---
History of Present Illness Consult date: 04/29/18 History of Present Illness: The patient is an 87-year-old right-handed white male presented to the emergency department with altered mental status. According to family the patient had been less responsive today. She does have a history of dementia and is on Aricept. He is a poor historian. Neurology is requested to see the patient for altered mental status. is able to speak and follow commands. He is pleasantly confused. He denies any headache ,dizziness ,weakness , visual changes, or speech disturbance. Patient's thinks that he lives alone and still Kv[place]. Currently the patient lives with his daughter in [place]. Patient is unsure why he has been brought to the hospital but he does no reason the hospital. Review of Systems ROS unobtainable: due to mental status Past Medical History Past Medical History: Coronary Artery Disease (CAD), Cancer, CVA/TIA, Dementia, Diabetes Mellitus, Eye Disorder, Hyperlipidemia, Hypertension, Memory Impairment , Pneumonia, Prostate Disorder, Pulmonary Embolus (PE) Additional Past Medical History / Comment(s): prostate cancer,skin cancer, insulin dependent diabetes,katia macular degeneration, past detatched retina katia eyes had sx, past cataracs(sx), shingles 40 years ago, wears a brief. "yeast infection abd fold/groin area-has a prescription cream for it" pt wears 2L home O2 at night History of Any Multi-Drug Resistant Organisms: None Reported Past Surgical History: Coronary Bypass/CABG, Hernia Repair, Prostate Surgery Additional Past Surgical History / Comment(s): 5 vessel bypass 2007, katia carotid sx, prostatectomy, katia eye retinal sx, bleheroplasty x2, catatacts Past Anesthesia/Blood Transfusion Reactions: Previous Problems w/ Anesthesia Additional Past Anesthesia/Blood Transfusion Reaction / Comment(s): increased confusion/hallucinating after sx Past Psychological History: No Psychological Hx Reported Additional Psychological History / Comment(s): pt moved here from [facility] [place] to live with his daughter vasile. lives in a single story home -2 steps. pets: 1 cat, 1 dog. currently no outside services received. has a walker-duaghter trying to get him to use. pt served in the [employer] when younger. worked as a draftsman. pt was and his in 2007. Smoking Status: Former smoker Past Alcohol Use History: None Reported Additional Past Alcohol Use History / Comment(s): started smoking age 16 and quit 2007 daughters not sure how much he smoked, past occ alcohol- quit 2002 Past Drug Use History: None Reported - Past Family History Mother Family Medical History: CVA/TIA, Dementia Father Family Medical History: Cancer Additional Family Medical History / Comment(s): from stomach cancer at ge 48 Medications and Allergies Home Medications Medication Instructions Recorded Confirmed Type Apixaban [Eliquis] 2.5 mg PO BID 04/14/17 04/29/18 History Aspirin EC [Ecotrin Low Dose] 81 mg PO DAILY 04/14/17 04/29/18 History Carvedilol [Coreg] 6.25 mg PO BID 04/14/17 04/29/18 History Donepezil [Aricept] 10 mg PO HS 04/14/17 04/29/18 History Insulin Glargine,Hum.rec.anlog 40 units SQ HS 04/14/17 04/29/18 History [Toujeo Solostar] Vit A/Vit C/Vit E/Zinc/Copper 1 cap PO BID 04/14/17 04/29/18 History [ICAPS SOFTGEL] amLODIPine [Norvasc] 2.5 mg PO DAILY 04/14/17 04/29/18 History Atorvastatin [Lipitor] 20 mg PO HS 04/20/17 04/29/18 History Furosemide [Lasix] 40 mg PO DAILY 04/20/17 04/29/18 History traMADol HCl [Ultram] 50 mg PO Q6H PRN 04/20/17 04/29/18 History Allergies Allergy/AdvReac Type Severity Reaction Status Date / Time No Known Allergies Allergy Verified 04/29/18 18:09 Physical Examination - Vital Signs Vital Signs: Vital Signs Temp Pulse Pulse Resp BP BP Pulse Ox 04/29/18 21:12 96.7 F L 55 L 18 178/82 96 04/29/18 20:30 97 F L 54 L 18 161/75 97 04/29/18 19:30 97 F L 54 L 20 158/74 97 04/29/18 18:30 55 L 18 165/73 98 04/29/18 18:00 54 L 18 168/85 98 04/29/18 17:36 97.1 F L 58 L 20 181/87 93 L Intake and Output 04/29/18 04/29/18 04/30/18 14:59 22:59 06:59 Output Total 250 Balance -250 Output: Urine 250 Other: # Voids 1 Weight 102.965 kg - Constitutional General appearance: obese - EENT EENT: PERRL - Respiratory Respiratory: lungs clear - Cardiovascular Cardiovascular: regular rate, normal S1, normal S2 - Integumentary Integumentary: normal - Neurologic Neurologic examination: Mental status: He was awake he was alert he was oriented to person he knew he was in the hospital he did not know which hospital or why he was in the hospital the year was 1953 the month was July the season was winter there is no a aphasia or dysarthria. He was able to follow commands he had moderate short-term memory loss Cranial nerve examination: PERRL, EOMI, VFF, V1/V2/V3 grossly intact, face symmetric, tongue midline Speech examination: intact Detailed motor examination: grossly full strength in all extremities Detailed sensory examination: intact - Psychiatric Psychiatric: mood/affect appropriate Results - Laboratory Findings CBC and BMP: 04/29/18 17:23 04/29/18 17:23 Abnormal Lab Findings: Abnormal Labs 04/29/18 04/29/18 04/29/18 17:23 17:23 17:23 Hgb 11.2 L Hct 38.2 L MCV 77.6 L MCH 22.7 L MCHC 29.3 L RDW 17.7 H BUN 38 H Creatinine 1.40 H Glucose 125 H POC Glucose (mg/dL) ALT 19 L LDL Cholesterol, Calc 101 H HDL Cholesterol 38 L 04/29/18 04/29/18 17:42 19:29 Hgb Hct MCV MCH MCHC RDW BUN Creatinine Glucose POC Glucose (mg/dL) 126 H 123 H ALT LDL Cholesterol, Calc HDL Cholesterol Assessment and Plan (1) Altered mental status Current Visit: Yes Status: Acute SNOMED Code(s): 013202465 (2) Alzheimer's dementia Current Visit: No Status: Acute Code(s): G30.9 - ALZHEIMER'S DISEASE, UNSPECIFIED SNOMED Code(s): 95231391 (3) TIA (transient ischemic attack) Current Visit: Yes Status: Acute SNOMED Code(s): 301130808 Plan: The patient is an 87-year-old man with history of dementia was brought to the emergency room by family due to decreased responsiveness. Neurologic examination the patient has no focal findings but does have signs of moderate dementia. At a CT of the brain in the emergency room which showed cerebral atrophy and chronic small vessel ischemia without any acute intracranial abnormality. The CT angios of the head and neck which showed mild atherosclerotic vascular disease. The patient likely had a confusional spell versus presyncope. Also according to the record the family had thought he may have had a left-sided facial droop. He will be further evaluated with echocardiogram. He is on Eliquis. In the emergency room the case was discussed with Dr. Dai, neuro interventionalist and the patient was not a candidate for TPA Recommend EEG.
[2018-04-29 23:43] LABS: Albumin 3.9 g/dL (3.5-5.0); Calcium 9.3 mg/dL (8.4-10.2); Total Bilirubin 0.5 mg/dL (0.2-1.3); Total Protein 6.9 g/dL (6.3-8.2)
[2018-04-29 23:50] LABS: Potassium 4.7 mmol/L (3.5-5.1)
[2018-04-30] LABS: Creatine Kinase MB 1.4 ng/mL (0.0-2.4); Troponin I 0.019 ng/mL (0.000-0.034)
[2018-04-30] MEDS: DONEPEZIL 10 MG TAB PO SCH ×2 (00:29→20:16)
[2018-04-30] MEDS: ATORVASTATIN 20 MG TAB PO SCH ×2 (00:30→20:16)
[2018-04-30] MEDS: APIXABAN 2.5 MG TABLET PO SCH ×3 (00:30→20:16)
[2018-04-30 06:11] LABS: Glucose,Whole Blood 129 mg/dL (75-99)
[2018-04-30 06:22] LABS: Creatine Kinase MB 1.5 ng/mL (0.0-2.4); Troponin I 0.017 ng/mL (0.000-0.034)
[2018-04-30] MEDS: INSULIN ASPART 100 UNIT/ML 1 ML 10 ML VIAL SQ SCH ×4 (07:08→21:37)
[2018-04-30] MEDS: CARVEDILOL 6.25 MG TAB PO SCH ×2 (07:08→17:31)
[2018-04-30] MEDS ORDERED: NON-FORMULARY DRUG (Vit A/Vit C/Vit E/Zinc/Copper [Icaps Softgel] 1 CAP) PO SCH (09:00)
[2018-04-30] MEDS: amLODIPine 2.5 MG TAB PO SCH (09:39)
[2018-04-30] MEDS: FUROSEMIDE 40 MG TAB PO SCH (09:39)
[2018-04-30 11:19] LABS: Glucose,Whole Blood 218 mg/dL (75-99)
--- NOTE | 2018-04-30 11:41 | ECHOF ---
Referral Reason:Thrombus MEASUREMENTS -------- HEIGHT: 182.9 cm WEIGHT: 101.2 kg BP: 138/73 IVSd: 1.1 cm (0.6 - 1.1) LVIDd: 3.7 cm (3.9 - 5.3) LVPWd: 1.3 cm (0.6 - 1.1) IVSs: 1.5 cm LVIDs: 2.5 cm LVPWs: 1.3 cm Ao Diam: 3.3 cm (2.0 - 3.7) AV Cusp: 2.1 cm (1.5 - 2.6) LA Diam: 4.7 cm (2.7 - 3.8) MV E Genaro: 0.76 m/s MV DecT: 203 ms MV A Genaro: 0.95 m/s MV E/A Ratio: 0.80 RAP: 5.00 mmHg RVSP: 8.15 mmHg FINDINGS -------- Right bundle branch ravindra This was a technically difficult study with suboptimal views. The left ventricular size is normal. Left ventricular wall thickness is normal. Overall left vent ricular systolic function is normal with, an EF between 55 - 60 %. The right ventricle is normal in size and function. The left atrium is moderately dilated. The right atrium is normal in size. Lumason used The aortic valve was not well visualized. There is trace mitral regurgitation. Trace tricuspid regurgitation present. The right ventricular systolic pressure, as measured by Dopp ler, is 8.15mmHg. Pulmonic valve appears structurally normal. The aortic root size is normal. IVC Not well visulized. The pericardium is normal. CONCLUSIONS -------- 1. Right bundle branch ravindra 2. This was a technically difficult study with suboptimal views. 3. The left ventricular size is normal. 4. Left ventricular wall thickness is normal. 5. Overall left ventricular systolic function is normal with, an EF between 55 - 60 %. 6. The right ventricle is normal in size and function. 7. The left atrium is moderately dilated. 8. The right atrium is normal in size. 9. Lumason used 10. The aortic valve was not well visualized. 11. There is trace mitral regurgitation. 12. Trace tricuspid regurgitation present. 13. The right ventricular systolic pressure, as measured by Doppler, is 8.15mmHg. 14. Pulmonic valve appears structurally normal. 15. The aortic root size is normal. 16. IVC Not well visulized. 17. The pericardium is normal. AIRPORT CONTROL OPERATOR: Chantal Sanford RDCS
[2018-04-30 13:00] LABS: Hemoglobin A1C 8.4 % (4.0-6.0)
[2018-04-30 16:44] LABS: Glucose,Whole Blood 297 mg/dL (75-99)
[2018-04-30] MEDS: ASPIRIN 325 MG TAB PO SCH (17:30)
[2018-04-30] MEDS: SODIUM CHLORIDE 0.9% 1,000 ML IV SCH ×2 (17:31→23:25)
--- NOTE | 2018-04-30 18:03 | HP ---
HISTORY AND PHYSICAL DATE OF SERVICE: April 30, 2018. CHIEF COMPLAINT: Altered mental status and lethargy. HISTORY OF PRESENTING ILLNESS: Mr. Yifan Archuleta is an 87-year-old male who lives at home and care has been provided by the daughter. The patient cannot give a detailed history. It appears that patient was not waking up, was extremely somnolent. There was some issues associated with weakness in the left side of the face as well. The patient was brought to the emergency department for further evaluation. Workup includes a CT scan of the brain, which failed to reveal significant acute pathology, however, does noted there were chronic small-vessel changes and some cerebral atrophy. The CT angio performed around the same time failed to reveal any significant pathology. No aneurysm or stenosis was noted. There was some atherosclerotic vascular disease was seen, the chest x-ray performed in the emergency department was unremarkable, except for the presence of bilateral prominent interstitium, likely pulmonary fibrosis. During my evaluation, patient was more awake, alert, sitting upright in the chair, eating his lunch. He does have a history of obstructive sleep apnea, however, does not use a CPAP machine. The patient did wake up spontaneously in the emergency department. PAST MEDICAL HISTORY: Significant for coronary artery disease. History of CVA and dementia, Alzheimer's disease, type 2 diabetes mellitus, dyslipidemia, hypertension, hypertensive cardiovascular disease, chronic memory impairment, dementia, history of prior pneumonia, prostate disorder including prostate cancer, history of pulmonary embolism. Macular degeneration. PAST SURGICAL HISTORY: Significant for coronary artery bypass surgery, hernia repair, history of prostate surgery, bilateral cataract extraction, history of blepharoplasty, status post prostatectomy, status post bilateral carotid artery surgery, CABG x5. FAMILY HISTORY/SOCIAL HISTORY: Extensive history of smoking and nicotine use, started smoking 16 years of age, quit about 10 years ago. Used to consume alcohol off and on. Also, quit about 15 years ago. ALLERGIES: Include no known drug allergies. MEDICATIONS: At home include Eliquis 2.5 2 times a day, aspirin 81 mg daily. Coreg 6.25 2 times a day. Aricept 10 mg daily. Insulin sliding scale, also on 40 units at bedtime. Vitamin A, C A E, zinc and copper. Norvasc 2.5 mg daily. Atorvastatin 20 mg daily. Lasix 40 mg daily. Tramadol 50 mg daily. Family history and social history otherwise unremarkable and noncontributory. EXAMINATION: Vitals include blood pressure is 140/90, respiratory rate 18, pulse 68, temp is 97.8, OS is 95% on 2 L of oxygen. HEENT atraumatic. Normocephalic. Pharynx is clear. Narrow pharyngeal opening is present. NECK: Supple without lymphadenopathy, jugular venous distention or carotid bruit. Lungs bilateral air entry without significant rales, rhonchi or rub. HEART: Regular rate and rhythm. S1, S2 audible. ABDOMEN: Soft. No rebound or rigidity. Extremities: +1 peripheral pulses. Neurological exam is otherwise awake and alert. No focal neurological deficit. LABS: Reviewed. Medications reviewed. Radiographic studies as noted above. White cell count is 7300, hemoglobin 11 and hematocrit 38, platelet count of 292,000. Sodium is 140, potassium 4.7, BUN and creatinine 37 and 1.13, BUN is 11, CO2 is 24. Echocardiogram performed this morning was reviewed. Right bundle branch block. Trace TR is noted. Aortic valve is not visualized. Trace MR is noted. Ejection fraction 55- 60 percent. IMPRESSION: 1. Altered mental status. Somnolence of unclear etiology. However, the patient woke up, suspect presence of sleep-disordered breathing and sleep apnea and transient hypercapnia. Family has declined polysomnogram as well as a CPAP or BiPAP. 2. History of left-sided facial droop, weakness, possible transient ischemic attack cannot be excluded. 3. Alzheimer's disease and advanced dementia. 4. Coronary artery disease. 5. Hypertension, hypertensive cardiovascular disease. 6. Morbid obesity. PLAN AND RECOMMENDATION:: Includes to resume home medication. Gentle rehydration. Continue anticoagulation. Monitor blood pressure closely. Further recommendations pending. Plan of care as per clinical response of the patient. Altered mental status, likely to be metabolic. Will follow. MMODL / IJN: [id number] /
[2018-04-30 19:28] LABS: Appearance,Urine Clear (Clear); Bilirubin,Urine Negative (Negative); Blood,Urine Negative (Negative); Color,Urine Yellow; Glucose,Urine (UA) 2+ (Negative); Ketones,Urine Negative (Negative); Leukocyte Esterase,Urine Negative (Negative); Nitrite,Urine Negative (Negative); Protein,Urine Negative (Negative); Specific Gravity,Urine 1.018 (1.001-1.035); Urobilinogen,Urine <2.0 mg/dL (<2.0)
--- NOTE | 2018-04-30 21:17 | P.PN ---
Subjective Progress Note Date: 04/30/18 The patient an 87-year-old man who was admitted to the hospital with a unresponsive episode. has multiple comorbidities including coronary artery disease and diabetes hyperlipidemia hypertension history of pulmonary embolus and history of prostate cancer. The patient has underlying dementia and is a poor historian. He does not recall why he is in the hospital. He is oriented to person and place. He is able to follow commands. He denied any neurologic symptoms such as pain weakness numbness or visual changes. The patient had an echocardiogram showed normal left ventricular size and a moderately dilated left atrium. Patient is on Eliquis and aspirin. He has a history of coronary artery bypass graft and history of atrial fibrillation. He does have sinus bradycardia with right bundle branch block. Objective - Vital Signs Vital signs: Vital Signs Temp 97 F L 04/30/18 16:00 Pulse 69 04/30/18 16:00 Resp 18 04/30/18 16:00 BP 155/70 04/30/18 16:00 Pulse Ox 94 L 04/30/18 16:00 Intake & Output 04/30/18 04/30/18 05/01/18 06:59 18:59 06:59 Intake Total 572 Output Total 550 Balance -550 572 Weight 101.2 kg Intake: Oral 572 Output: Urine 550 Other: Voiding Method Toilet Toilet Diaper Diaper # Voids 1 5 # Bowel Movements 1 - Constitutional General appearance: Present: obese - EENT Eyes: Present: EOMI, PERRLA ENT: Present: hearing grossly normal - Respiratory Respiratory: bilateral: CTA - Cardiovascular Rhythm: regular - Neurologic Neurologic Comment(s): Neurologic examination: Mental status: The patient was awake alert and oriented to person and place. He knew he was in the hospital. There was no evidence of a aphasia or dysarthria. He did have some moderate short-term memory loss. He is unaware of reason for admission. Cranial nerve examination: There is a very minimal left facial droop next Motor examination 5 out of 5 throughout Sensory examination: Intact to light touch Gait not tested - Labs CBC & Chem 7: 04/29/18 17:23 04/29/18 23:15 Labs: Abnormal Lab Results - Last 24 Hours (Table) 04/29/18 04/29/18 04/29/18 Range/Units 17:23 17:23 23:15 BUN 37 H (9-20) mg/dL Creatinine 1.33 H (0.66-1.25) mg/dL Glucose 133 H (74-99) mg/dL POC Glucose (mg/dL) (75-99) mg/dL Hemoglobin A1c 8.4 H (4.0-6.0) % LDL Cholesterol, Calc 101 H (0-99) mg/dL HDL Cholesterol 38 L (40-60) mg/dL Urine Glucose (UA) (Negative) 04/30/18 04/30/18 04/30/18 Range/Units 06:09 11:11 16:39 BUN (9-20) mg/dL Creatinine (0.66-1.25) mg/dL Glucose (74-99) mg/dL POC Glucose (mg/dL) 129 H 218 H 297 H (75-99) mg/dL Hemoglobin A1c (4.0-6.0) % LDL Cholesterol, Calc (0-99) mg/dL HDL Cholesterol (40-60) mg/dL Urine Glucose (UA) (Negative) 04/30/18 Range/Units 18:54 BUN (9-20) mg/dL Creatinine (0.66-1.25) mg/dL Glucose (74-99) mg/dL POC Glucose (mg/dL) (75-99) mg/dL Hemoglobin A1c (4.0-6.0) % LDL Cholesterol, Calc (0-99) mg/dL HDL Cholesterol (40-60) mg/dL Urine Glucose (UA) 2+ H (Negative) Assessment and Plan (1) Altered mental status Current Visit: Yes Status: Acute SNOMED Code(s): 396191678 (2) Alzheimer's dementia Current Visit: No Status: Acute Code(s): G30.9 - ALZHEIMER'S DISEASE, UNSPECIFIED SNOMED Code(s): 09845030 (3) TIA (transient ischemic attack) Current Visit: Yes Status: Acute SNOMED Code(s): 651403122 Plan: The patient is an 87-year-old man with history of dementia was brought to the emergency room by family due to decreased responsiveness. Family had also noticed some left facial droop which seems to be more evident today. He has been on eliquis and aspirin. He has had a CT angiogram of head and neck which did not show any significant stenosis. Patient has dementia and is on Aricept. Recommend physical therapy for gait assessment the patient's risk factors for stroke include history of atrial fibrillation history of coronary artery disease status post CABG, hyperlipidemia, hypertension, smoking history and history of TIA/stroke . Reason for unresponsive episode is unclear. Cannot rule out the possibility of episode of arrhythmia. The patient will have a follow-up CT brain in a.m.
[2018-04-30 21:33] LABS: Glucose,Whole Blood 182 mg/dL (75-99)
[2018-04-30] MEDS ORDERED: MELATONIN 5 MG TABLET PO PRN (23:12)
[2018-04-30] MEDS: ALPRAZolam 0.25 MG TAB PO PRN (23:25)
--- NOTE | 2018-05-01 05:21 | EEG ---
ELECTROENCEPHALOGRAM REPORT DATE OF EE04/30/2018 ELECTROENCEPHALOGRAPHIC EXAMINATION REPORT: INDICATION FOR EXAMINATION: This patient is a 87-year-old male being evaluated for altered mental status and decreased responsiveness. Patient has history of underlying dementia. AGE: 87. EEG FINDINGS: A routine 21 channel awake digital EEG recording was accomplished utilizing the 10-20 international system with bipolar and referential montages. The background activity in the most alert resting state consists of a low to medium amplitude, fairly well developed and well sustained 6 Hz activity over the posterior head regions. This posterior rhythm attenuates to eye opening. There is a small amount of low amplitude 18-20 Hz beta activity seen maximally over the anterior head regions. Muscle and movement artifact was observed on a few occasions during the tracing. Hyperventilation was not performed. Photic stimulation at flash frequencies of 2-30 Hz produced a minimal occipital driving response. No epileptiform discharges were seen. IMPRESSION: This EEG is moderately abnormal in a diffuse fashion due to slowing of the EEG background. The EEG failed to reveal any focal, lateralized, or epileptiform abnormalities. Clinical correlation is recommended. MMODL / IJN: [id number] /
[2018-05-01 05:47] LABS: Glucose,Whole Blood 156 mg/dL (75-99)
[2018-05-01] MEDS: SODIUM CHLORIDE 0.9% 1,000 ML IV SCH ×2 (06:31→11:50)
[2018-05-01] MEDS: CARVEDILOL 6.25 MG TAB PO SCH ×2 (06:38→17:39)
[2018-05-01] MEDS: INSULIN ASPART 100 UNIT/ML 1 ML 10 ML VIAL SQ SCH ×4 (06:40→21:06)
[2018-05-01] MEDS: FUROSEMIDE 40 MG TAB PO SCH (09:27)
[2018-05-01] MEDS: APIXABAN 2.5 MG TABLET PO SCH ×2 (09:27→21:06)
[2018-05-01] MEDS: ASPIRIN 325 MG TAB PO SCH (09:27)
[2018-05-01] MEDS: amLODIPine 2.5 MG TAB PO SCH (09:27)
--- NOTE | 2018-05-01 11:13 | CT ---
EXAMINATION TYPE: CT brain wo con DATE OF EXAM: 05/01/2018 COMPARISON: 04/29/2018 an 04/14/2017 HISTORY: 87 year-old male altered mental status, follow-up TIA TECHNIQUE: Examination was done in axial plane without intravenous contrast. Coronal and sagittal r econstructions performed. CT DLP: 1054.2 mGycm Automated exposure control for dose reduction was used. FINDINGS: There is no evidence of acute intracranial hemorrhage, acute ischemic changes, mass, mass-effect, or extra-axial fluid collection. There is no effacement of cerebral sulci or basal subarachnoid cister ns. There is no midline shift. Melendez-white matter distinction is preserved. Moderate generalized supratentorial volume loss with severe confluent white matter hypodensities in b oth cerebral hemispheres and chronic area of encephalomalacia in the right parietal lobe likely relat ing to prior infarct. Mild to moderate hydrocephalus is unchanged likely secondary to central cerebral atrophy. Trace mucosal thickening ethmoid air cells. Orbits and globes are intact with prior scleral banding o n both sides. Mastoid air cells are well pneumatized. IMPRESSION: Stable moderate generalized atrophy, mild to moderate ventriculomegaly likely secondarily on an ex va cuo basis, and severe confluent changes of chronic small vessel ischemic disease. Also, old infarct r ight parietal lobe. No acute intracranial abnormality seen. If concern for subtle acute ischemia, con hoeing row boss MRI.
[2018-05-01 11:27] LABS: Glucose,Whole Blood 209 mg/dL (75-99)
[2018-05-01 17:04] LABS: Glucose,Whole Blood 231 mg/dL (75-99)
--- NOTE | 2018-05-01 18:30 | P.PN ---
Subjective Progress Note Date: 05/01/18 The patient an 87-year-old man who was admitted to the hospital with a unresponsive episode. The patient has multiple comorbidities including coronary artery disease and diabetes hyperlipidemia hypertension history of pulmonary embolus and history of prostate cancer. The patient has underlying dementia and is a poor historian. He appears very sleepy today. According to the nurse he was up all night and didn't sleep all day until 5 PM this afternoon. Nurse reports that he just fell asleep about 1 hour ago. Patient had an EEG which showed moderate slowing without any epileptiform discharges. He also had a follow-up CT which showed an old right parietal infarct with no acute changes. Objective - Vital Signs Vital signs: Vital Signs Temp 98.7 F 05/01/18 15:16 Pulse 71 05/01/18 15:16 Resp 18 05/01/18 15:16 BP 140/79 05/01/18 17:51 Pulse Ox 94 L 05/01/18 15:16 Intake & Output 04/30/18 05/01/18 05/01/18 18:59 06:59 18:59 Intake Total 572 1800 Balance 572 1800 Weight 99 kg Intake: Oral 572 1800 Other: Voiding Method Toilet Toilet Toilet Diaper Diaper Diaper # Voids 5 2 3 - Constitutional General appearance: Present: obese - Respiratory Respiratory: bilateral: CTA - Cardiovascular Rhythm: regular - Neurologic Neurologic Comment(s): Neurologic examination: The patient was in deep sleep and difficult to examine today. He did open his eyes to painful stimuli and he did slightly claims adjudicator with his hands but went back to sleep. He does have equal pupils and he has minimal left facial droop was on which is unchanged from yesterday. There is no obvious focal deficit. He was able to move all extremities Withdraw his legs to painful stimuli. He did nod yes when asked if his glasses were his own - Labs CBC & Chem 7: 04/29/18 17:23 04/29/18 23:15 Labs: Abnormal Lab Results - Last 24 Hours (Table) 04/30/18 04/30/18 05/01/18 Range/Units 18:54 21:32 05:46 POC Glucose (mg/dL) 182 H 156 H (75-99) mg/dL Urine Glucose (UA) 2+ H (Negative) 05/01/18 05/01/18 Range/Units 11:10 16:59 POC Glucose (mg/dL) 209 H 231 H (75-99) mg/dL Urine Glucose (UA) (Negative) Microbiology - Last 24 Hours (Table) 04/30/18 18:54 Urine Culture - Preliminary Urine,Clean Catch Assessment and Plan (1) Altered mental status Current Visit: Yes Status: Acute SNOMED Code(s): 797423057 (2) Alzheimer's dementia Current Visit: No Status: Acute Code(s): G30.9 - ALZHEIMER'S DISEASE, UNSPECIFIED SNOMED Code(s): 42304927 (3) TIA (transient ischemic attack) Current Visit: Yes Status: Acute SNOMED Code(s): 637380214 Plan: The patient is an 87-year-old man with multiple medical problems who presents with possible TIA versus syncope. He has had a CT angiogram of head and neck which did not show any significant stenosis. The patient has had an EEG which showed moderate slowing without any epileptiform activity. Patient had a follow -up CT brain today which did not show any acute findings. There was an old right parietal infarct. The patient's risk factors for stroke include history of atrial fibrillation history of coronary artery disease status post CABG, hyperlipidemia, hypertension, smoking history and history of TIA/stroke . Recommend continue Eliquis and aspirin .
[2018-05-01] MEDS: ALPRAZolam 0.25 MG TAB PO PRN (19:47)
[2018-05-01 20:55] LABS: Glucose,Whole Blood 170 mg/dL (75-99)
[2018-05-01] MEDS: ATORVASTATIN 20 MG TAB PO SCH (21:05)
[2018-05-01] MEDS: DONEPEZIL 10 MG TAB PO SCH (21:06)
--- NOTE | 2018-05-02 00:01 | PN ---
PROGRESS NOTE SUBJECTIVE: An 87-year-old white male admitted with unresponsive episode, hypertension, history of pulmonary embolism, prostate cancer, underlying dementia, poor historian. EEG was normal. CT scan of the brain was normal. EEG showed no seizures. CT showed an old stroke. Wait for Cardiology to clear the patient prior to discharge. O2 is 94%, blood pressure 140/79, respiratory 16-18, pulse 71, temp 98.7. CARDIOVASCULAR: S1, S2. LUNGS: Clear. GI: Soft. ENDOCRINE: BMI is over 40. Hemoglobin is 11.2. BUN is 37, creatinine 1.33. ASSESSMENT: 1. Altered mental status. 2. Alzheimer dementia. Await clearance from Cardiology prior to going home. MMODL / IJN: [id number] /
[2018-05-02 06:18] LABS: Glucose,Whole Blood 141 mg/dL (75-99)
[2018-05-02] MEDS: INSULIN ASPART 100 UNIT/ML 1 ML 10 ML VIAL SQ SCH ×2 (06:26→12:11)
[2018-05-02] MEDS: CARVEDILOL 6.25 MG TAB PO SCH (06:42)
[2018-05-02] MEDS: SODIUM CHLORIDE 0.9% 1,000 ML IV SCH ×2 (06:43→12:21)
[2018-05-02 07:12] LABS: Anisocytosis Slight; Basophils # (A) 0.1 k/uL (0-0.2); Basophils % (A) 1 %; Eosinophils # (A) 0.4 k/uL (0-0.7); Eosinophils % (A) 5 %; HCT 35.8 % (39.0-53.0); HGB 10.5 gm/dL (13.0-17.5); Hypochromasia Marked; Lymphocytes # (A) 1.6 k/uL (1.0-4.8); Lymphocytes % (A) 21 %; MCH 22.8 pg (25.0-35.0); MCHC 29.3 g/dL (31.0-37.0); MCV 77.7 fL (80.0-100.0); Mean Platelet Volume 7.3; Microcytosis Slight; Monocytes # (A) 0.6 k/uL (0-1.0); Monocytes % (A) 8 %; Neutrophils # (A) 4.9 k/uL (1.3-7.7); Neutrophils % (A) 64 %; Platelet Count 253 k/uL (150-450); RDW 17.8 % (11.5-15.5); WBC 7.8 k/uL (3.8-10.6)
[2018-05-02 07:23] LABS: Albumin 3.4 g/dL (3.5-5.0); Calcium 8.8 mg/dL (8.4-10.2); Potassium 3.7 mmol/L (3.5-5.1); Total Bilirubin 0.4 mg/dL (0.2-1.3); Total Protein 6.1 g/dL (6.3-8.2)
[2018-05-02] MEDS: FUROSEMIDE 40 MG TAB PO SCH (09:10)
[2018-05-02] MEDS: amLODIPine 2.5 MG TAB PO SCH (09:10)
[2018-05-02] MEDS: APIXABAN 2.5 MG TABLET PO SCH (09:10)
[2018-05-02] MEDS: ASPIRIN 325 MG TAB PO SCH (09:10)
--- NOTE | 2018-05-02 10:59 | P.CRDCN ---
History of Present Illness Consult date: 05/02/18 Requesting physician: Norm Gold Reason for Consult (text): Right bundle branch block pattern Chief complaint: Mental status changes History of present illness: This is a 87-year-old gentleman with history of hypertension, hyperlipidemia, prior pulmonary embolism, diabetes, advanced Alzheimer's disease , who was apparently brought to the hospital with mental status changes, according to the daughter who the patient lives with, she was unable to wake Her father. She does state that he had a blood pressure, pulse, and good oxygenation. An echocardiogram was performed which revealed an ejection fraction of 60. CAT scan of the brain was performed which revealed no acute intracranial abnormality. EKG showed a normal sinus rhythm with a right bundle branch block pattern, upon review of prior EKGs, patient was noted to have a right bundle branch block pattern at that time as well. Blood pressure 101/50 with a heart rate in the 60s, 100% on room air. White blood cell count 7.8, hemoglobin 10.5, platelet count 253. Sodium 140, potassium 3.7, BUN 26, creatinine 1.3. Troponins 0.012, 0.019, 0.017. Cardiology consultation was requested because of right bundle branch block pattern, this appears to been present for quite some time on this patient's EKG. And no arrhythmias have been noted on the monitor. He is scheduled to be discharged home today, according to the daughter she takes care of him in her home. He does not recognize her, his Alzheimer's is quite advanced. He denies any discomfort dizziness or lightheadedness this morning, answers questions quite appropriately. Past Medical History Past Medical History: Coronary Artery Disease (CAD), Cancer, CVA/TIA, Dementia, Diabetes Mellitus, Eye Disorder, Hyperlipidemia, Hypertension, Memory Impairment , Pneumonia, Prostate Disorder, Pulmonary Embolus (PE) Additional Past Medical History / Comment(s): prostate cancer,skin cancer, insulin dependent diabetes,katia macular degeneration, past detatched retina katia eyes had sx, past cataracs(sx), shingles 40 years ago, wears a brief. "yeast infection abd fold/groin area-has a prescription cream for it" pt wears 2L home O2 at night History of Any Multi-Drug Resistant Organisms: None Reported Past Surgical History: Coronary Bypass/CABG, Hernia Repair, Prostate Surgery Additional Past Surgical History / Comment(s): 5 vessel bypass 2007, katia carotid sx, prostatectomy, katia eye retinal sx, bleheroplasty x2, catatacts Past Anesthesia/Blood Transfusion Reactions: Previous Problems w/ Anesthesia Additional Past Anesthesia/Blood Transfusion Reaction / Comment(s): increased confusion/hallucinating after sx Past Psychological History: No Psychological Hx Reported Additional Psychological History / Comment(s): [place] [facility] [place] vasile. lives in a single story home -2 steps. pets: 1 cat, 1 dog. currently no outside services received. has a walker-duaghter trying to get him to use. pt served in [employer] when younger. worked as a draftsman. pt was and his in 2007. Smoking Status: Former smoker Past Alcohol Use History: None Reported Additional Past Alcohol Use History / Comment(s): started smoking age 16 and quit 2007 daughters not sure how much he smoked, past occ alcohol- quit 2002 Past Drug Use History: None Reported - Past Family History Mother Family Medical History: CVA/TIA, Dementia Father Family Medical History: Cancer Additional Family Medical History / Comment(s): from stomach cancer at 48 Medications and Allergies Home Medications Medication Instructions Recorded Confirmed Type Apixaban [Eliquis] 2.5 mg PO BID 04/14/17 04/29/18 History Aspirin EC [Ecotrin Low Dose] 81 mg PO DAILY 04/14/17 04/29/18 History Carvedilol [Coreg] 6.25 mg PO BID 04/14/17 04/29/18 History Donepezil [Aricept] 10 mg PO HS 04/14/17 04/29/18 History Insulin Glargine,Hum.rec.anlog 40 units SQ HS 04/14/17 04/29/18 History [Toujeo Solostar] Vit A/Vit C/Vit E/Zinc/Copper 1 cap PO BID 04/14/17 04/29/18 History [ICAPS SOFTGEL] amLODIPine [Norvasc] 2.5 mg PO DAILY 04/14/17 04/29/18 History Atorvastatin [Lipitor] 20 mg PO HS 04/20/17 04/29/18 History Furosemide [Lasix] 40 mg PO DAILY 04/20/17 04/29/18 History traMADol HCl [Ultram] 50 mg PO Q6H PRN 04/20/17 04/29/18 History Allergies Allergy/AdvReac Type Severity Reaction Status Date / Time No Known Allergies Allergy Verified 04/29/18 18:09 Physical Exam Vitals: Vital Signs Temp Pulse Resp BP Pulse Ox 05/02/18 04:00 97.1 F L 61 18 101/54 100 05/01/18 23:22 97.1 F L 65 20 153/88 96 05/01/18 20:00 96.9 F L 67 21 145/69 98 05/01/18 17:51 140/79 05/01/18 15:16 98.7 F 71 16 148/74 94 L 05/01/18 12:00 97.9 F 67 16 139/79 95 Intake and Output 05/01/18 05/02/18 05/02/18 22:59 06:59 14:59 Intake Total 0 0 Balance 0 0 Intake: Intake, IV Titration 0 0 Amount Sodium Chloride 0.9% 1, 0 0 000 ml @ 100 mls/hr IV . Q10H [facility] Rx#:[id number] Other: Voiding Method Diaper Diaper Incontinent Incontinent # Voids 2 1 Weight 99.2 kg PHYSICAL EXAMINATION: GENERAL: 87-year-old gentleman in no acute distress at the time of my examination HEENT: Head is atraumatic, normocephalic. Pupils equal, round. Sclera anicteric. Conjunctiva are clear. Mucous membranes of the mouth are moist. Neck is supple. There is no elevated jugular venous pressure.] bruit is heard. HEART EXAMINATION: R S1 and S2 1 systolic murmur is heard CHEST EXAMINATION:[ Lungs are clear to auscultation and precussion. No chest wall tenderness is noted on palpation or with deep breathing.] ABDOMEN: [ Soft, nontender. Bowel sounds are heard. No organomegaly noted]. EXTREMITIES:[ 2+ peripheral pulses with no evidence of peripheral edema and no calf tenderness noted]. NEUROLOGIC [patient is awake, alert and oriented 1 . Results 05/02/18 06:41 05/02/18 06:41 Cardiac Enzymes 05/02/18 Range/Units 06:41 AST 28 (17-59) U/L CBC 05/02/18 Range/Units 06:41 WBC 7.8 (3.8-10.6) k/uL RBC 4.60 (4.30-5.90) m/uL Hgb 10.5 L (13.0-17.5) gm/dL Hct 35.8 L (39.0-53.0) % Plt Count 253 (150-450) k/uL Comprehensive Metabolic Panel 05/02/18 Range/Units 06:41 Sodium 140 (137-145) mmol/L Potassium 3.7 (3.5-5.1) mmol/L Chloride 104 (98-107) mmol/L Carbon Dioxide 28 (22-30) mmol/L BUN 26 H (9-20) mg/dL Creatinine 1.30 H (0.66-1.25) mg/dL Glucose 123 H (74-99) mg/dL Calcium 8.8 (8.4-10.2) mg/dL AST 28 (17-59) U/L ALT 24 (21-72) U/L Alkaline Phosphatase 61 (38-126) U/L Total Protein 6.1 L (6.3-8.2) g/dL Albumin 3.4 L (3.5-5.0) g/dL Current Medications Generic Name Dose Route Start Last Admin Trade Name Freq PRN Reason Stop Dose Admin Alprazolam 0.25 mg 04/30/18 23:11 05/01/18 19:47 Xanax PO 0.25 mg QID PRN Administration Anxiety Amlodipine Besylate 2.5 mg 04/30/18 09:00 05/01/18 09:27 Norvasc PO 2.5 mg DAILY [facility] Administration Apixaban 2.5 mg 04/29/18 23:30 05/01/18 21:06 Eliquis PO 2.5 mg BID [facility] Administration Aspirin 325 mg 04/30/18 14:00 05/01/18 09:27 Aspirin PO 325 mg DAILY [facility] Administration Atorvastatin Calcium 20 mg 04/29/18 23:30 05/01/18 21:05 Lipitor PO 20 mg HS [facility] Administration Carvedilol 6.25 mg 04/30/18 07:30 05/02/18 06:42 Coreg PO 6.25 mg BID-W/MEALS [facility] Administration Donepezil HCl 10 mg 04/29/18 23:30 05/01/18 21:06 Aricept PO 10 mg HS [facility] Administration Furosemide 40 mg 04/30/18 09:00 05/01/18 09:27 Lasix PO 40 mg DAILY [facility] Administration Sodium Chloride 1,000 mls @ 100 mls/hr 04/29/18 19:00 05/02/18 06:43 Saline 0.9% IV Not Given .Q10H [facility] Insulin Aspart 0 unit 04/30/18 07:30 05/02/18 06:26 Novolog SQ Not Given ACHS [facility] Protocol Melatonin 5 mg 04/30/18 23:12 Melatonin PO HS PRN Insomnia Tramadol HCl 50 mg 04/29/18 23:18 Ultram PO Q6H PRN Mild Pain Intake and Output 05/01/18 05/02/18 05/02/18 22:59 06:59 14:59 Intake Total 0 0 Balance 0 0 Intake: Intake, IV Titration 0 0 Amount Sodium Chloride 0.9% 1, 0 0 000 ml @ 100 mls/hr IV . Q10H [facility] Rx#:[id number] Other: Voiding Method Diaper Diaper Incontinent Incontinent # Voids 2 1 Weight 99.2 kg 05/02/18 06:41 05/02/18 06:41 EKG Interpretations (text) EKG shows a normal sinus rhythm with a right bundle-branch block. Assessment and Plan Plan: assessment and plan #1 mental status changes in a patient with known advanced Alzheimer's dementia #2 right bundle branch block pattern on EKG, not new for the patient. No arrhythmias noted on the monitor #3 history of CVA #4 diabetes #5 hypertension #6 hyperlipidemi #7 history of pulmonary embolisma #8 coronary artery disease Plan Echocardiogram with Doppler study was performed which revealed a normal left ventricular systolic function. No arrhythmias noted on the monitor. Right bundle branch block appears to be on hold for the patient. From cardiology's perspective, patient may be able to be discharged home today, he can follow-up with his primary care doctor in the office post discharge. DNP note has been reviewed, I agree with a documented findings and plan of care. Patient was seen and examined.
[2018-05-02 11:08] VITALS: PULSE 65; RESP 16
[2018-05-02 11:38] LABS: Glucose,Whole Blood 243 mg/dL (75-99)
[2018-05-02 12:24] VITALS: BP 108/71; TEMP 97.6
--- NOTE | 2018-05-03 16:13 | CDI ---
Documentation Clarification Form Date: 05/03/2018 3:54:38 PM From: MARK Ibanez; Joy Horton Manager Of Information Phone: If you have a question about this query, please contact Joy Horton Manager Of Information at [phone] between 8am and 5pm. Admit Date: 04/29/2018 6:50:00 PM Patient Name: Yifan Archuleta Visit Number: [id number] Discharge Date: 05/02/2018 ATTENTION: The Clinical Documentation Specialists (CDI) and [facility] Coding Staff appreciate your assistance in clarifying documentation. Please respond to the clarification below the line at the bottom and electronically sign. The CDI & [facility] Coding staff will review the response and follow-up if needed. Please note: Queries are made part of the Legal Health Record. If you have any questions, please contact the author of this message via ITS. Norm Craig MD The patient presented with altered mental status and somnolence of unclear etiology. Differential on the H&P included sleep apnea with transient hypercapnia, possible TIA, and advanced Alzheimers disease. Patient history/risk factors: Alzheimers disease, DM, hypertensive cardiovascular disease, chronic memory impairment, right bundle branch block. Brain CT: cerebral atrophy with small vessel disease; no acute intracranial abnormality. Neurology consult; Moderate dementia, likely confusional spell versus syncope. The patients principal diagnosis has not been clearly identified and requires clarification. In your professional opinion, can you please clarify which diagnosis, after study, accounted for the patients presenting symptoms and was the reason chiefly responsible for the admission? MTDD
--- NOTE | 2018-05-09 14:02 | CDI ---
Documentation Clarification Form Date: 05/09/18 From: Tarah Johnson Admit Date: 04/29/2018 6:50:00 PM Patient Name: Yifan Archuleta Visit Number: [id number] Discharge Date: 05/02/18 ATTENTION: The Clinical Documentation Specialists (CDI) and [facility] Coding Staff appreciate your assistance in clarifying documentation. Please respond to the clarification below the line at the bottom and electronically sign. The CDI & [facility] Coding staff will review the response and follow-up if needed. Please note: Queries are made part of the Legal Health Record. If you have any questions, please contact the author of this message via ITS. Norm Maldonado MD The patient presented with altered mental status and somnolence of unclear etiology. Differential on the H&P included sleep apnea with transient hypercapnea, possible TIA, and advanced Alzheimers disease. Patient history/risk factors: Alzheimers disease, chronic memory impairment. Brain CT: cerebral atrophy with small vessel disease; no acute intracranial abnormality. Neurology consult; Moderate dementia, likely confusional spell versus syncope. The patients principal diagnosis has not been clearly identified and requires clarification. In your professional opinion, can you please clarify which diagnosis, after study, accounted for the patients presenting symptoms and was the reason chiefly responsible for the admission? Please dictate your Discharge Summary and include your underlying cause of this altered mental status change. MTDD
--- NOTE | 2018-05-12 14:46 | DS ---
DISCHARGE SUMMARY DISCHARGE SUMMARY: Please add to the discharge summary, metabolic encephalopathy secondary to polycythemia secondary to obstructive sleep apnea and hypercapnia secondary to sleep apnea. MMODL / IJN: [id number] /
== END 2018-05-02 16:43 | disposition home or self-care (01) | DRG 154 ==
LOC: EC 17:35 → 6SEL 18:50
PROVIDERS: ADMIT Family Medicine; ATTEND Family Medicine
DX: G47.33 Obstructive sleep apnea (adult) (pediatric) (principal); G93.41 Metabolic encephalopathy; D75.1 Secondary polycythemia; G30.9 Alzheimer's disease, unspecified; E11.69 Type 2 diabetes mellitus with other specified complication; E66.01 Morbid (severe) obesity due to excess calories; E78.5 Hyperlipidemia, unspecified; F02.80 Dementia in other diseases classified elsewhere, unspecified severity, without behavioral disturbance, psychotic disturbance, mood disturbance, and anxiety; H35.30 Unspecified macular degeneration; I11.9 Hypertensive heart disease without heart failure; I25.10 Atherosclerotic heart disease of native coronary artery without angina pectoris; I45.10 Unspecified right bundle-branch block; I48.91 Unspecified atrial fibrillation; J84.10 Pulmonary fibrosis, unspecified; Z79.01 Long term (current) use of anticoagulants; Z79.4 Long term (current) use of insulin; Z79.899 Other long term (current) drug therapy; Z80.0 Family history of malignant neoplasm of digestive organs; Z85.46 Personal history of malignant neoplasm of prostate; Z85.828 Personal history of other malignant neoplasm of skin; Z86.711 Personal history of pulmonary embolism; Z87.01 Personal history of pneumonia (recurrent); Z87.891 Personal history of nicotine dependence; Z90.79 Acquired absence of other genital organ(s); Z95.1 Presence of aortocoronary bypass graft; Z98.41 Cataract extraction status, right eye; Z98.42 Cataract extraction status, left eye; Z79.82 Long term (current) use of aspirin; R06.89 Other abnormalities of breathing
CPT/HCPCS: 36415; 70450; 70496; 70498; 71045; 80053; 80061; 81003; 82550; 82553; 83036; 84484; 85025; 85610; 85730; 87086; 93005; 93306; 95816; 99285